=== PATIENT | male | born 1975 | race Caucasian/White ===

== ENCOUNTER → 2023-11-13 19:15 | Outpatient (REF) | payer OTHER, SELFPAY ==
[2023-11-13 19:23] VITALS: BP 165/87
[2023-11-13 19:23] LABS: Glucose - Point of Care 201 mg/dl (70-99)
[2023-11-13 19:46] LABS: % Basophils 0.5 % (0-2); % Immature Granulocytes 0.2 % (0-0.5); % Lymphocytes 24.2 % (20.5-51.1); % Monocytes 6.4 % (1.7-9.3); % Neutrophils 67.7 % (42.2-75.2); Absolute Eosinophils 0.1 10^3/uL (0-0.7); Absolute Monocytes 0.5 10^3/uL (0.1-0.6); Absolute Neutrophils 5.6 10^3/uL (1.4-6.5); Hematocrit 40.3 % (39.0-52.0); Hemoglobin 14.1 g/dL (13.0-18.0); Mean Corpuscular Hgb 31.1 pg (27.0-31.0); Mean Platelet Volume 11.3 fL (7.4-10.4); Nucleated Red Blood Cells % 0 % (-); Platelet Count 146 10^3/uL (130-400); Red Blood Cell Count 4.53 10^6/uL (4.70-6.10); White Blood Cell Count 8.3 10^3/uL (4.8-10.8)
[2023-11-13 20:00] LABS: ALT (SGPT) 82 U/L (0-50); AST (SGOT) 58 U/L (17-59); Albumin 4.6 g/dl (3.5-5.0); Alkaline Phosphatase 67 U/L (38-126); Blood Urea Nitrogen 18 mg/dl (9-20); Calcium 9.1 mg/dl (8.4-10.2); Carbon Dioxide 29 mmol/L (22-30); Chloride 98 mmol/L (98-107); Glucose 199 mg/dl (70-99); Potassium 4.2 mmol/L (3.5-5.1); Sodium 133 mmol/L (135-145); Total Bilirubin 0.6 mg/dl (0.2-1.3); Total Protein 7.5 g/dl (6.3-8.2); eGFR > 60.00
[2023-11-13 20:19] LABS: Troponin I < 0.012 ng/ml
== END | disposition left against medical advice (07) ==
LOC: REG 19:15
PROVIDERS: ATTENDING PHYSICIAN Emergency Medicine
DX: R07.9 Chest pain, unspecified (principal)
CPT/HCPCS: 80053; 82962; 84484; 85025; 93005

== ENCOUNTER 2023-12-12 15:43 | Inpatient (IN) | payer OTHER, SELFPAY ==
[2023-12-12 11:53] VITALS: BP 165/100
--- NOTE | 2023-12-12 12:27 | ED.GENMED ---
History of Present Illness
General
Chief Complaint: Dizziness
Time Seen by Provider: 12/12/23 12:06
Travel History
Have you had any contact with someone who has COVID-19?: No
Do you have any symptoms of coronavirus? Fever > 100 degrees, chills, cough, shortness of breath, sore throat, loss of taste or smell, muscle aches, or headache?: Yes
Symptoms:: fever
History of Present Illness
History of Present Illness:
47-year-old male with history of insulin-dependent diabetes, A-fib on Eliquis, hypertension, and GERD presents to the emergency department for evaluation of general malaise and severe sore throat for the past 2 days. He reports dysphagia and voice
changes over the past 24 hours. Tactile fevers and chills noted as well. Denies any coughing or chest pain.
Past History
Past History
ED Past Medical History: Asthma, GERD, HTN and NIDDM
ED Past Surgical History: Orthopedic
Social History
Tobacco: Non-smoker
Alcohol: None
Drug: None
Personal:
Living: with family
Review of Systems
Review of Systems
Allergies reviewed?: Yes
All Other Systems: ROS reviewed and negative except as documented in HPI and ROS
Phy Exam
Physical Exam
Physical Exam:
GEN: Well appearing, NAD, WDWN
HEENT: Oral mucosa moist, no scleral icterus. No tonsillar hypertrophy or exudates, uvula midline, no evidence for peritonsillar abscess. Voice is somewhat muffled, there is palpable cervical adenopathy bilaterally, noted crepitus of the neck
Cardiac: Tachycardic, regular
Lung: No respiratory distress, no tachypnea, lungs clear to auscultation
MSK: No gross deformity or injuries
Skin: Good color, no pallor or jaundice, no rashes
Neuro: AO x3, moves all extremities freely
Psych: Calm, cooperative
Course
Orders/Labs/Results
Orders:
Orders
12/12/23 11:58
Electrocardiogram (*1) Urgent
Reason for Study: Vertigo / Dizzy
12/12/23 11:59
EKG- Treatment ONCE
12/12/23 12:23
CT Neck With Iv Contrast Urgent
Comment:
Reason For Exam: dyphagia, throat pain
12/12/23 12:48
0.9% Sodium Chloride 1000 ml [Nss] 1,000 ml IV BOLUS
Ketorolac [Toradol] 15 mg IV NOW STA
12/12/23 12:52
COVID-19 Antigen Urgent
Source: Nasal Swab
Complete Blood Count/With Diff Urgent
Comprehensive Metabolic Panel Urgent
Lactic Acid Urgent
Influenza A+B Rapid Molecular Urgent
CORINA Source: Nasal Swab
Specimen Description:
12/12/23 14:29
Dexamethasone Sod Phosphate [Decadron] 10 mg IV NOW STA
12/12/23 14:30
Ampicillin/Sulbactam 3 G [Unasyn] 3 gm 0.9% Sodium Chloride 100 ml [Nss] 100 ml IV NOW
12/12/23 15:04
Code Status As Directed
Resuscitation Status: Full Code
Acetaminophen [Tylenol] 650 mg PO Q4HPRN PRN
Dextrose 50%-Water [Dextrose 50% Syringe] 12.5 grams IV [id number] PRN
Glucagon [GlucaGen] 1 mg IM PRN PRN
12/12/23 15:05
Activity As Directed
Activity Level: With Assistance
Bedside Glucose Monitoring As Directed
Frequency: AC&HS
Comment: Change to q6h if pt on TPN, tube feeding or not eating
Vital Signs As Directed
Frequency: Per unit guidelines
DX Deep Vein Thrombosis Video Routine
12/12/23 15:15
0.9% Sodium Chloride 1000 ml [Nss] 1,000 ml IV 15 mls/hr
12/12/23 15:21
Admit/Transfer Patient As Directed
Co-Sign Provider:
Level of Care: Inpatient admission
Assign to:: Medical/Surgical
Physician / Group: Jevon
Diagnosis: epiglottis/tonsillitis
Reason for Hospitalization: epiglottis/tonsillitis
Expected length of stay greater than two midnights?: Yes
ELOS- Estimated Length of Stay in days: 3
I certify the patient meets the requirements for IP care: Yes
12/12/23 15:24
Ampicillin/Sulbactam 3 G [Unasyn] 3 gm 0.9% Sodium Chloride 100 ml [Nss] 100 ml IV NOW
12/12/23 16:17
Blood Culture Routine
CORINA Source: Blood/Venous
Specimen Description:
Blood Culture Urgent
CORINA Source: Blood/Venous
Specimen Description:
12/12/23 16:30
Insulin Aspart Corrective Mod [Novolog Flexpen-Moderate Resistance] See Protocol SC AC
12/12/23 18:00
Enoxaparin Sodium [Lovenox] 40 mg SC QPM
Ketorolac [Toradol] 10 mg IV Q6HPRN PRN
12/12/23 22:00
Atorvastatin [Lipitor] 10 mg PO HS
12/12/23 23:00
Ampicillin/Sulbactam 3 G [Unasyn] 3 gm 0.9% Sodium Chloride 100 ml [Nss] 100 ml IV Q6
12/13/23 00:00
Dexamethasone Sod Phosphate [Decadron] 4 mg IV Q6
12/13/23 Breakfast
NPO
Allow oral meds: Yes
Allow clear liquids: Sips of Clears
Basic Metabolic Panel IN AM
Complete Blood Count/With Diff IN AM
Glycohemoglobin (HgbA1c) IN AM
12/13/23 08:00
Diltiazem Extended Release [Cardizem Cd] 180 mg PO DAILY
Pantoprazole [Protonix] 40 mg PO DAILY
dextroamphetamine-amphetamine 0 mg PO DAILY
12/13/23 12:00
Amphet Asp/Amphet/D-Amphet [Adderall] 10 mg PO DAILY@1200
12/14/23 06:00
Basic Metabolic Panel IN AM
Complete Blood Count/With Diff IN AM
12/15/23 06:00
Basic Metabolic Panel IN AM
Complete Blood Count/With Diff IN AM
Abnormal Lab Results
12/12/23
12:52
WBC 14.5 H 10^3/uL
(4.8-10.8)
Abs Immat Gran (auto) 0.1 H 10^3/uL
(0-0.05)
Absolute Neuts (auto) 11.8 H 10^3/uL
(1.4-6.5)
Absolute Monos (auto) 1.2 H 10^3/uL
(0.1-0.6)
Neutrophils % 81.3 H %
(42.2-75.2)
Lymphocytes % 9.6 L %
(20.5-51.1)
Sodium 132 L mmol/L
(135-145)
Glucose 198 H mg/dl
(70-99)
ALT 63 H U/L
(0-50)
12/12/23 12:52
12/12/23 12:52
Vital Signs
Initial and Last Documented VS:
Initial Vital Signs
Temp Pulse Resp BP Pulse Ox
98.6 F 106 20 165/100 95
12/12/23 11:53 12/12/23 11:53 12/12/23 11:53 12/12/23 11:53 12/12/23 11:53
Last Documented Vital Signs
Temp Pulse Resp BP Pulse Ox
98.3 F 77 18 139/83 98
12/12/23 17:00 12/12/23 17:00 12/12/23 17:00 12/12/23 17:00 12/12/23 17:00
MDM/Problems Addressed
MDM/Problems Addressed:
CT of the soft tissue neck was obtained due to the patient's muffled voice and concern for upper airway compromise. CT confirms presence of supraglottitis however no evidence for epiglottitis or parapharyngeal abscess. Given that he is an
insulin-dependent diabetic and there is clear impending airway involvement given the supraglottitis we will start the patient on IV steroids and antibiotics and admit to the medical service for further management
*Critical Care Note
Total Time (30-74mins, 75-104mins- exclusive of procedures): Not Applicable
ED Attending Note
-
Portions of this chart may have been created with voice recognition software.� Occasional wrong word or��sound alike� substitutions may have occurred due to the inherent limitations of voice recognition software.
Discharge Plan
Departure
Patient Disposition: Admit
Date of Disposition: 12/12/23
Time of Disposition: 14:33
Presentation/result/management discussed w/ accepting MD/DO: Hospitalist
Discharge Problem:
Supraglottitis without airway obstruction
Interventions
Interventions:
*Risk Screen - Suicide Last Done: 12/12/23 17:06
*General Assessment Last Done: 12/12/23 11:53
*Neglect/Abuse Screening Last Done: 12/12/23 17:06
*ED COVID-19 Vaccine History Last Done: 12/12/23 11:53
*Nursing Disposition Last Done: 12/12/23 17:06
ED- Neurological Assessment Last Done: 12/12/23 14:00
ED- Cardiac Assessment Last Done: 12/12/23 14:00
ED Swallowing Screen Last Done: 12/12/23 14:30
Discharge Date and Time
Discharge Date/Time: 12/12/23 17:07
[2023-12-12] MEDS: NSS 1000 IV ×3 (12:55→20:02)
[2023-12-12] MEDS: TORADOL 15 MG IV (12:56)
[2023-12-12 13:00] LABS: % Basophils 0.2 % (0-2); % Eosinophils 0.1 % (0-6); % Immature Granulocytes 0.5 % (0-0.5); % Lymphocytes 9.6 % (20.5-51.1); % Monocytes 8.3 % (1.7-9.3); % Neutrophils 81.3 % (42.2-75.2); Absolute Immature Granulocytes 0.1 10^3/uL (0-0.05); Absolute Lymphocytes 1.4 10^3/uL (1.2-3.4); Absolute Monocytes 1.2 10^3/uL (0.1-0.6); Absolute Neutrophils 11.8 10^3/uL (1.4-6.5); Hemoglobin 16.9 g/dL (13.0-18.0); Mean Corpuscular Hgb 30.9 pg (27.0-31.0); Mean Corpuscular Volume 85.9 fL (80.0-94.0); Mean Platelet Volume 10.4 fL (7.4-10.4); Nucleated Red Blood Cells % 0 % (-); Platelet Count 159 10^3/uL (130-400); Red Blood Cell Count 5.47 10^6/uL (4.70-6.10); Red Cell Dist. Width 12.2 % (11.5-14.5); White Blood Cell Count 14.5 10^3/uL (4.8-10.8)
[2023-12-12 13:16] LABS: ALT (SGPT) 63 U/L (0-50); AST (SGOT) 31 U/L (17-59); Albumin 4.5 g/dl (3.5-5.0); Alkaline Phosphatase 106 U/L (38-126); Blood Urea Nitrogen 20 mg/dl (9-20); Calcium 9.1 mg/dl (8.4-10.2); Carbon Dioxide 26 mmol/L (22-30); Chloride 99 mmol/L (98-107); Glucose 198 mg/dl (70-99); Lactic Acid 1.2 mmol/L (0.7-2.0); Potassium 4.3 mmol/L (3.5-5.1); Sodium 132 mmol/L (135-145); Total Bilirubin 0.9 mg/dl (0.2-1.3); Total Protein 7.7 g/dl (6.3-8.2); eGFR > 60.00
[2023-12-12 13:20] LABS: COVID-19 Antigen Negative (Negative)
--- NOTE | 2023-12-12 14:36 | HPS.HSE ---
Family Physician
-
Family Physician: NOT KNOW UNKNOWN - PT DOES
Chief Complaint
-
Generalized malaise and a dyne aphasia
History of Present Illness
47 y/o M with PMHx:
DM2
Atrial fibrillation
Essential hypertension
GERD
who p/w CC generalized malaise and a dyne aphasia. He has had symptoms for 2 days. He is developed dysphagia and changes in his voice over the last day. Patient reports that he felt he was 'drowning in mucus' which led to some difficulty
breathing. He had nausea and took [id number] antiemetics. He reports headache and neck stiffness. Patient had a fever of 102 �F. Denies chest pain, abdominal pain, diarrhea.
Medical History
Past Medical History
Past Medical History: Reports Other (As per HPI)
Past Surgical History: Reports Other (N/A)
Social History
Tobacco: Non-smoker
Alcohol: None
Drug: None
Family History
Family History: Not pertinent
Allergies / Home Medications
Allergies reflects when Allergies were last updated in [facility].
Home Medications with original date entered in [facility]
Allergy/Medication List:
Allergies
Allergy/AdvReac Type Severity Reaction Status Date / Time
No Known Allergies Allergy Verified 12/12/23 11:55
Home Medications
atorvastatin 10 mg tablet 10 mg PO HS 12/12/23
dextroamphetamine-amphetamine 10 mg tablet 10 mg PO DAILY@1200 12/12/23
dextroamphetamine-amphetamine ER 15 mg 24hr capsule,extend release 15 mg PO DAILY 12/12/23
diltiazem HCl 180 mg capsule,extended release 24 hr, controlled 180 mg PO DAILY 12/12/23
furosemide 20 mg tablet 20 mg PO DAILY 12/12/23
indomethacin 50 mg capsule 50 mg PO MEALS 12/12/23
insulin glargine 100 unit/mL (3 mL) subcutaneous pen (Lantus Solostar U-100 Insulin) 14 unit SC DAILY 12/12/23
metformin 1,000 mg tablet 1,000 mg PO BID 12/12/23
pantoprazole 40 mg tablet,delayed release 40 mg PO DAILY 12/12/23
semaglutide 0.25 mg or 0.5 mg (2 mg/3 mL) subcutaneous pen injector (Ozempic) 0.25 mg SC TU 12/12/23
Review of Systems
-
History Source: Patient
A 12 point ROS was completed and negative except as noted: Yes
Physical Exam
Vital Signs
Vital Signs
Temp Pulse Resp BP Pulse Ox
98.6 F 106 20 165/100 95
12/12/23 11:53 12/12/23 11:53 12/12/23 11:53 12/12/23 11:53 12/12/23 11:53
Physical Exam
General: Other (.)
Laboratory Results
-
12/12/23 12:52
12/12/23 12:52
Laboratory Results
Lactic Acid 1.2 mmol/L (0.7-2.0) 12/12/23 12:52
Total Bilirubin 0.9 mg/dl (0.2-1.3) 12/12/23 12:52
AST 31 U/L (17-59) 12/12/23 12:52
ALT 63 U/L (0-50) H 12/12/23 12:52
Alkaline Phosphatase 106 U/L (38-126) 12/12/23 12:52
Impression/Plan
-
Gen: NAD, AAOx3.
Eyes: EOMI, PERRLA, no scleral icterus.
Neck: supple.
CV: RRR, +S1/S2, no m/r/g.
Resp: CTAB, no rales, wheezes, or rhonchi.
Abd: +BS, soft, NT, ND
Skin: No rashes.
Neuro: CN 2-12 intact, non-focal.
Psych: Normal mood and affect.
CT neck: CT findings in keeping with tonsillitis and supraglottitis without abscess.
Acute tonsillitis and supraglottitis:
-ER Tx: Unasyn 3g, 1L NS, Toradol 15mg IV, Decadron 10mg IV
-cont Unasyn/Decadron/IVFs
-NPO for now
Other problems:
DM2: SSI/accuchecks, check a1c
Atrial fibrillation: Cont Cardizem
Essential hypertension: Cont Cardizem
GERD: Cont PPI
Hyponatremia
FULL/Lovenox
[2023-12-12] MEDS: DECADRON 10 MG IV (15:26)
[2023-12-12] MEDS: UNASYN IV ×2 (15:34→22:00)
[2023-12-12 16:00] VITALS: BP 138/81
[2023-12-12] MEDS: TYLENOL 650 MG PO (16:11)
[2023-12-12 17:00] VITALS: BP 139/83; BMI 36.3
[2023-12-12 17:46] LABS: Glucose - Point of Care 227 mg/dl (70-99)
[2023-12-12] MEDS: NOVOLOG FLEXPEN-MODERATE RESISTANCE 3 UNITS SC (18:36)
[2023-12-12] MEDS: LOVENOX 40 MG SC (18:36)
[2023-12-12] MEDS: TORADOL 10 MG IV (20:02)
[2023-12-12] MEDS: LIPITOR 10 MG PO (21:56)
[2023-12-12 23:15] VITALS: BP 122/79
[2023-12-12] MEDS: DECADRON 4 MG IV (23:50)
[2023-12-12 23:55] LABS: Glucose - Point of Care 220 mg/dl (70-99)
[2023-12-13] MEDS: NSS 1000 IV ×3 (04:04→21:52)
[2023-12-13] MEDS: TORADOL 10 MG IV ×3 (04:13→16:58)
[2023-12-13] MEDS: UNASYN IV ×4 (05:56→23:32)
[2023-12-13] MEDS: DECADRON 4 MG IV ×4 (05:56→23:32)
[2023-12-13 05:58] LABS: Glucose - Point of Care 277 mg/dl (70-99)
[2023-12-13] MEDS: NOVOLOG FLEXPEN-MODERATE RESISTANCE 5 UNITS SC (06:01)
[2023-12-13 07:30] VITALS: BP 127/78
[2023-12-13 08:14] LABS: % Basophils 0.2 % (0-2); % Immature Granulocytes 0.9 % (0-0.5); % Monocytes 3.7 % (1.7-9.3); % Neutrophils 84.2 % (42.2-75.2); Absolute Immature Granulocytes 0.1 10^3/uL (0-0.05); Absolute Lymphocytes 1.1 10^3/uL (1.2-3.4); Absolute Monocytes 0.4 10^3/uL (0.1-0.6); Absolute Neutrophils 8.4 10^3/uL (1.4-6.5); Hematocrit 44.4 % (39.0-52.0); Hemoglobin 15.6 g/dL (13.0-18.0); Mean Corp Hgb Conc. 35.1 g/dL (33.0-37.0); Mean Corpuscular Hgb 30.9 pg (27.0-31.0); Mean Corpuscular Volume 87.9 fL (80.0-94.0); Mean Platelet Volume 11.2 fL (7.4-10.4); Nucleated Red Blood Cells % 0 % (-); Platelet Count 152 10^3/uL (130-400); Red Blood Cell Count 5.05 10^6/uL (4.70-6.10); Red Cell Dist. Width 12.2 % (11.5-14.5); White Blood Cell Count 9.9 10^3/uL (4.8-10.8)
[2023-12-13 08:47] LABS: Blood Urea Nitrogen 30 mg/dl (9-20); Calcium 8.8 mg/dl (8.4-10.2); Carbon Dioxide 24 mmol/L (22-30); Chloride 101 mmol/L (98-107); Estimated Creatinine Clearance > 125 ml/min; Glucose 274 mg/dl (70-99); Potassium 4.3 mmol/L (3.5-5.1); Sodium 136 mmol/L (135-145); eGFR > 60.00
[2023-12-13 09:30] LABS: Glucose - Point of Care 236 mg/dl (70-99)
[2023-12-13] MEDS: CARDIZEM CD 180 MG PO (09:46)
[2023-12-13] MEDS: PROTONIX 40 MG PO (09:46)
[2023-12-13] MEDS: LANTUS 0.100000000000000006 UNITS SC (09:46)
--- NOTE | 2023-12-13 10:18 | W.PN.HOSP.TC ---
Today's Communication/Plan
-
see bold
Assessment / Plan
Assessment / Plan
Gen: NAD, AAOx3.
Eyes: EOMI, PERRLA, no scleral icterus.
Neck: supple.
CV: RRR, +S1/S2, no m/r/g.
Resp: CTAB, no rales, wheezes, or rhonchi.
Abd: +BS, soft, NT, ND
Skin: No rashes.
Neuro: CN 2-12 intact, non-focal.
Psych: Normal mood and affect.
CT neck: CT findings in keeping with tonsillitis and supraglottitis without abscess.
Acute tonsillitis and supraglottitis:
-ER Tx: Unasyn 3g, 1L NS, Toradol 15mg IV, Decadron 10mg IV
-cont Unasyn/Decadron/IVFs
-VSE as per speech
Other problems:
DM2: a1c 9.0%, SSI/accuchecks, NPH 10U x 1, diabetes VARIETY SAW OPERATOR to see, cont Lantus
Atrial fibrillation: Cont Cardizem
Essential hypertension: Cont Cardizem
GERD: Cont PPI
Hyponatremia, resolved
FULL/Lovenox
Anticipated Discharge: 24 - 48 hours
Subjective/Interval History
-
Date of Service: December 13, 2023
No new complaints. Denies CP/SOB/drooling.
Objective Data
-
Labs:
Laboratory Results
12/13/23
06:57
WBC 9.9
Hgb 15.6
Hct 44.4
Plt Count 152
Sodium 136
Potassium 4.3
Chloride 101
Carbon Dioxide 24
BUN 30 H
Creatinine 0.8
Glucose 274 H
Calcium 8.8
Vital Signs:
Vital Signs
Temp Pulse Resp BP Pulse Ox
97.7 F 65 16 127/78 96
12/13/23 07:30 12/13/23 09:46 12/13/23 07:30 12/13/23 09:46 12/13/23 07:30
I&O
12/12/23 12/13/23 12/14/23
06:59 06:59 06:59
Intake Total 1615 / 1615
Balance 1615 / 1615
--- NOTE | 2023-12-13 11:14 | PTOTSP ---
SPEECH THERAPY SWALLOW EVALUATION:
Clinical signs of pharyngeal dysphagia, with oral swallow function grossly WFL, likely acute related to supraglottitis. Patient exhibiting signs of aspiration at bedside with all textures. Recommend instrumental assessment of swallowing
(Videofluoroscopic Swallowing Study) to further assess swallow physiology. Recommend patient to be strict NPO until VSE with temporary alternate means for all nutrition/medication/hydration. Speech therapy to follow and provide further
recommendations following VSE results.
RECOMMEND:
1) Videofluoroscopic Swallowing Study
2) strict NPO until VSE with temporary alternate means for all nutrition/medication/hydration
3) Speech therapy to follow and provide further recommendations following VSE results
--- NOTE | 2023-12-13 11:25 | CM ---
Patient seen bedside, initial assessment completed. Patient reports he resides with his and nine children in a multiple story home. Patient denies DME, VN, or SNF. Patient confirms pharmacy used [facility], patient unsure of PCP name,
possibly [facility]. CM will continue to follow for discharge planning needs.
Plan; home no needs anticipated, pending further medical assessment.
--- NOTE | 2023-12-13 11:35 | PN.DE.MGMTRT ---
Insulin Management
- -
12/13/2023: Diabetes Management Consult
47 year old male with PMH of T2DM, admitted with Acute tonsillitis and supraglottitis: A1C 9.0%, Cr 0.9, eGFR>60.
Pt reports that he had been taking Trulicity--> switched to Ozempic ( hasn't started taking it), Lantus 14 units @ HS and Metformin 1000 mg BID-->Self reduced to 1000mg daily. States he has not taken any of his diabetes medications in 6 months due
to loss of insurance, reports that he recently got insurance coverage. HE reports that his A1C was much higher than it is now at initial DX of DM but does not recall what it was.
He currently has a CGM (Mckay) in place which was provided by his PCP as a sample.
He has been NPO, glucose elevated 220-277 requiring 3-5 units of corrective while NPO. His FBG was 274 this AM, received Lantus 10 units and NPH 10 units this AM as ordered by Dr. Escoto.
Will Resume his OP regimen, Lantus 14 units @ HS and Metformin 1000mg BID. Will reassess in AM and consider an additional oral agent if needed
He is ordered a Reg diet, will change to 2000 ADA. Instructed pt to resume his Ozempic upon discharge
Diabetes History
- -
Type of Diabetes: 2 requiring insulin
Pre-Admission Diabetes Regimen
12/12/23 12/13/23
12:52 06:57
Creatinine 0.9 0.8
Lab Results
Hemoglobin A1c 9.0 % (4.0-5.6) H 12/13/23 06:57
Insulin Pump Settings
IP Diabetes Regimen
12/12/23 12/12/23 12/12/23
12:52 17:45 23:54
Glucose 198 H
POC Glucose 227 H 220 H
12/13/23 12/13/23 12/13/23
05:57 06:57 09:29
Glucose 274 H
POC Glucose 277 H 236 H
Meal type: Breakfast
Meal type: Dinner
Amount consumed: 0
Patient Education
[2023-12-13 11:51] LABS: Glucose - Point of Care 225 mg/dl (70-99)
[2023-12-13] MEDS: HUMULIN N KWIKPEN 10 UNITS SC (11:52)
--- NOTE | 2023-12-13 12:30 | PTOTSP ---
Speech Language Pathology
VIDEOFLUOROSCOPIC SWALLOWING EXAMINATION (VSE) completed. Oral phase of swallow WNL. Mild pharyngeal dysphagia noted. Suspect related to acute tonsillitis and supraglottitis with edema, which should resolve. Trace to moderate pharyngeal residue
noted, most noteable in vallecula and on posterior pharyngeal wall. Throat clearing consistently noted, suspect secondary to this residue. Transient supraglottic penetration (PAS 2) noted with thin liquids via cup/consecutive straw sip and when
utilized as a liquid wash post regular solids. Liquid wash was effective at partially clearing vallecular residue.
Recommend:
(1) Initiate regular solids/thin liquids
(2) Aspiration precautions: sit upright, small bites, slow rate, single sips, alternate solids and liquids
(3) Meds whole with liquid
(4) BURNISHER AND BUMPER to continue to follow
[2023-12-13] MEDS: NOVOLOG FLEXPEN-MODERATE RESISTANCE 3 UNITS SC (12:45)
[2023-12-13 15:30] VITALS: BP 143/80
[2023-12-13] MEDS: GLUCOPHAGE 1000 MG PO (17:01)
[2023-12-13] MEDS: LOVENOX 40 MG SC (17:02)
[2023-12-13 17:11] LABS: Glucose - Point of Care 293 mg/dl (70-99)
[2023-12-13] MEDS: NOVOLOG FLEXPEN 10 UNITS SC (18:15)
[2023-12-13] MEDS: LANTUS 0.140000000000000013 UNITS SC (21:20)
[2023-12-13] MEDS: LIPITOR 10 MG PO (21:21)
[2023-12-13] MEDS: NOVOLOG FLEXPEN-MODERATE RESISTANCE 7 UNITS SC (21:25)
[2023-12-13 21:32] LABS: Glucose - Point of Care 335 mg/dl (70-99)
[2023-12-13] MEDS: MELATONIN 5 MG PO (21:52)
[2023-12-13 23:08] VITALS: BP 128/79
[2023-12-14] MEDS: NSS 1000 IV ×2 (05:56→13:08)
[2023-12-14] MEDS: DECADRON 4 MG IV ×2 (05:56→13:09)
[2023-12-14] MEDS: UNASYN IV ×2 (05:56→13:08)
[2023-12-14 07:30] VITALS: BP 133/70
[2023-12-14 07:30] LABS: Glucose - Point of Care 211 mg/dl (70-99)
[2023-12-14] MEDS: GLUCOPHAGE 1000 MG PO (08:07)
[2023-12-14] MEDS: PROTONIX 40 MG PO (08:07)
[2023-12-14] MEDS: NOVOLOG FLEXPEN 8 UNITS SC (08:07)
[2023-12-14] MEDS: NOVOLOG FLEXPEN-MODERATE RESISTANCE 3 UNITS SC (08:07)
--- NOTE | 2023-12-14 08:54 | PN.DE.MGMTRT ---
Insulin Management
- -
12/13/2023: Diabetes Management Consult
47 year old male with PMH of T2DM, admitted with Acute tonsillitis and supraglottitis: A1C 9.0%, Cr 0.9, eGFR>60.
Pt reports that he had been taking Trulicity--> switched to Ozempic ( hasn't started taking it), Lantus 14 units @ HS and Metformin 1000 mg BID-->Self reduced to 1000mg daily. States he has not taken any of his diabetes medications in 6 months due
to loss of insurance, reports that he recently got insurance coverage. HE reports that his A1C was much higher than it is now at initial DX of DM but does not recall what it was.
He currently has a CGM (Mckay) in place which was provided by his PCP as a sample.
He has been NPO, glucose elevated 220-277 requiring 3-5 units of corrective while NPO. His FBG was 274 this AM, received Lantus 10 units and NPH 10 units this AM as ordered by Dr. Escoto.
Will Resume his OP regimen, Lantus 14 units @ HS and Metformin 1000mg BID. Will reassess in AM and consider an additional oral agent if needed
He is ordered a Reg diet, will change to 2000 ADA. Instructed pt to resume his Ozempic upon discharge
12/14/2023 Diabetes management Follow up
A1C 9%. Patient home dose of lantus 14 units given last HS. Fasting glucose 211. Will increase HS lantus to 18 units. AC novolog 8 units ordered. Pre meal glucose 293, hs 335. Will increase AC novolog to 10 units. Will continue metformin 1000
BID. Regular diet ordered, will change to 2000 calorie.
Diabetes History
- -
Type of Diabetes: 2 requiring insulin
Pre-Admission Diabetes Regimen
Lab Results
Hemoglobin A1c 9.0 % (4.0-5.6) H 12/13/23 06:57
Insulin Pump Settings
IP Diabetes Regimen
12/13/23 12/13/23 12/13/23
09:29 11:50 17:10
POC Glucose 236 H 225 H 293 H
12/13/23 12/14/23
21:24 07:29
POC Glucose 335 H 211 H
Meal type: Breakfast
Patient Education
[2023-12-14] MEDS: CARDIZEM CD 180 MG PO (09:18)
[2023-12-14 09:28] LABS: % Basophils 0.1 % (0-2); % Immature Granulocytes 0.7 % (0-0.5); % Lymphocytes 10.8 % (20.5-51.1); % Monocytes 3.7 % (1.7-9.3); % Neutrophils 84.7 % (42.2-75.2); Absolute Immature Granulocytes 0.1 10^3/uL (0-0.05); Absolute Lymphocytes 1.3 10^3/uL (1.2-3.4); Absolute Monocytes 0.5 10^3/uL (0.1-0.6); Absolute Neutrophils 10.2 10^3/uL (1.4-6.5); Hematocrit 42.4 % (39.0-52.0); Hemoglobin 14.5 g/dL (13.0-18.0); Mean Corp Hgb Conc. 34.2 g/dL (33.0-37.0); Mean Corpuscular Hgb 30.3 pg (27.0-31.0); Mean Corpuscular Volume 88.5 fL (80.0-94.0); Mean Platelet Volume 11.2 fL (7.4-10.4); Nucleated Red Blood Cells % 0 % (-); Platelet Count 174 10^3/uL (130-400); Red Blood Cell Count 4.79 10^6/uL (4.70-6.10); Red Cell Dist. Width 12.1 % (11.5-14.5)
[2023-12-14 10:00] LABS: Blood Urea Nitrogen 26 mg/dl (9-20); Calcium 8.7 mg/dl (8.4-10.2); Carbon Dioxide 27 mmol/L (22-30); Chloride 104 mmol/L (98-107); Estimated Creatinine Clearance > 125 ml/min; Glucose 247 mg/dl (70-99); Potassium 4.7 mmol/L (3.5-5.1); Sodium 137 mmol/L (135-145); eGFR > 60.00
--- NOTE | 2023-12-14 11:27 | CM ---
Patient seen bedside, inquiring about discharge. CM spoke with patients nurse, patient still receiving IV antibiotics. CM will continue to follow for discharge planning needs.
Plan; home no needs anticipated, will follow for medical needs.
--- NOTE | 2023-12-14 11:29 | W.PN.HOSP.TC ---
Today's Communication/Plan
-
d/c
Assessment / Plan
Assessment / Plan
Gen: NAD, AAOx3.
Eyes: EOMI, PERRLA, no scleral icterus.
Neck: supple.
CV: Remains RRR, +S1/S2, no m/r/g.
Resp: Remains CTAB, no rales, wheezes, or rhonchi.
Abd: Remains +BS, soft, NT, ND
Skin: No rashes.
Neuro: CN 2-12 intact, non-focal.
Psych: Normal mood and affect.
CT neck: CT findings in keeping with tonsillitis and supraglottitis without abscess.
Acute tonsillitis and supraglottitis:
-ER Tx: Unasyn 3g, 1L NS, Toradol 15mg IV, Decadron 10mg IV
-has been on Unasyn/Decadron/IVFs, transition to Augmentin and prednisone taper on d/c
-s/p VSE, reg/thins
Other problems:
DM2: a1c 9.0%, SSI/accuchecks, Lantus and premeal Novolog increased, diabetic diet
Atrial fibrillation: Cont Cardizem
Essential hypertension: Cont Cardizem
GERD: Cont PPI
Hyponatremia, resolved
FULL/Lovenox
Total time spent on d/c = 34 min. This included today's physical exam, progress note, review of laboratory and diagnostic data, preparation of discharge documents and prescriptions, and discussions about the pt's hospital course and discharge plan
with the patient and other electromedical equipment technician involved in the patient's care.
Anticipated Discharge: Today
Subjective/Interval History
-
Date of Service: December 14, 2023
Pt reports he feels better. Denies drooling, chest pain, shortness of breath.
Objective Data
-
Labs:
Laboratory Results
12/14/23
08:20
WBC 12.0 H
Hgb 14.5
Hct 42.4
Plt Count 174
Sodium 137
Potassium 4.7
Chloride 104
Carbon Dioxide 27
BUN 26 H
Creatinine 0.8
Glucose 247 H
Calcium 8.7
Vital Signs:
Vital Signs
Temp Pulse Resp BP Pulse Ox
97.9 F 71 18 133/70 98
12/14/23 07:30 12/14/23 09:18 12/14/23 07:30 12/14/23 09:18 12/14/23 07:30
I&O
12/13/23 12/14/23 12/15/23
06:59 06:59 06:59
Intake Total 1615 / 1615 2435 / 2435
Balance 1615 / 1615 2435 / 2435
--- NOTE | 2023-12-14 12:16 | W.PN.HOSP.TC ---
Today's Communication/Plan
-
see bold
Assessment / Plan
Assessment / Plan
Gen: NAD, AAOx3.
Eyes: EOMI, PERRLA, no scleral icterus.
Neck: supple.
CV: Remains RRR, +S1/S2, no m/r/g.
Resp: Remains CTAB, no rales, wheezes, or rhonchi.
Abd: Remains +BS, soft, NT, ND
Skin: No rashes.
Neuro: CN 2-12 intact, non-focal.
Psych: Normal mood and affect.
CT neck: CT findings in keeping with tonsillitis and supraglottitis without abscess.
Acute tonsillitis and supraglottitis:
-ER Tx: Unasyn 3g, 1L NS, Toradol 15mg IV, Decadron 10mg IV
-has been on Unasyn/Decadron/IVFs, transition to Augmentin and prednisone taper on d/c
-s/p VSE, reg/thins
Other problems:
DM2: a1c 9.0%, SSI/accuchecks, Lantus and premeal Novolog increased, diabetic diet
Atrial fibrillation: Cont Cardizem
Essential hypertension: Cont Cardizem
GERD: Cont PPI
Hyponatremia, resolved
FULL/Lovenox
Total time spent on d/c = 34 min. This included today's physical exam, progress note, review of laboratory and diagnostic data, preparation of discharge documents and prescriptions, and discussions about the pt's hospital course and discharge plan
with the patient and other medical donation professional involved in the patient's care.
Anticipated Discharge: Today
Subjective/Interval History
-
Date of Service: December 14, 2023
Pt states he feels better. Denies drooling, CP, SOB.
Objective Data
-
Labs:
Laboratory Results
12/14/23
08:20
WBC 12.0 H
Hgb 14.5
Hct 42.4
Plt Count 174
Sodium 137
Potassium 4.7
Chloride 104
Carbon Dioxide 27
BUN 26 H
Creatinine 0.8
Glucose 247 H
Calcium 8.7
Vital Signs:
Vital Signs
Temp Pulse Resp BP Pulse Ox
97.9 F 71 18 133/70 98
12/14/23 07:30 12/14/23 09:18 12/14/23 07:30 12/14/23 09:18 12/14/23 07:30
I&O
12/13/23 12/14/23 12/15/23
06:59 06:59 06:59
Intake Total 1615 / 1615 2435 / 2435
Balance 1615 / 1615 2435 / 2435
[2023-12-14 12:21] LABS: Glucose - Point of Care 257 mg/dl (70-99)
[2023-12-14] MEDS: NOVOLOG FLEXPEN 10 UNITS SC (13:12)
[2023-12-14] MEDS: NOVOLOG FLEXPEN-MODERATE RESISTANCE 5 UNITS SC (13:13)
--- NOTE | 2023-12-14 13:17 | W.DCSUMMARY ---
Discharge Summary
Discharge Data
Date of Admission: 12/12/23
Date of Discharge: 12/14/23
-
Pending Results: No
Hospital Course
Primary diagnoses:
Acute tonsillitis and supraglottitis
Type 2 diabetes mellitus, poorly controlled
Secondary diagnoses:
Paroxysmal atrial fibrillation
Essential hypertension
Gastroesophageal reflux disease
Hyponatremia
Consultants:
None
Imaging:
CT neck: CT findings in keeping with tonsillitis and supraglottitis without abscess.
47-year-old male who presented with generalized malaise and a odynophagia as outlined in the H&P done on admission. Hospital course per problem list:
Acute tonsillitis and supraglottitis: In the ER the patient received Unasyn 3g, 1L NS, Toradol 15mg IV, Decadron 10mg IV. He was placed on IV Unasyn, IV Decadron, and IV fluids with significant clinical improvement. He was seen by speech therapy
and had a video swallow study. Regular solids and thin liquids were recommended. He was transitioned to Augmentin and a prednisone taper on discharge.
Type 2 diabetes mellitus, poorly controlled: Patient's hemoglobin A1c was 9.0%. His Lantus and Premeal NovoLog were increased by the diabetes nurse practitioner while hospitalized. He was placed on metformin. His Ozempic will continue on
discharge.
Discharge Plan
-
Patient Disposition: Home (Routine Discharge)
Discharge Diagnosis/Procedures: Acute tonsillitis and supraglottitis
Condition: Good
Diet: Diabetic, Carb Controlled
Activity: As tolerated
Driving Restrictions: As prior to admission
Bathing Restrictions: None
Referrals:
UNKNOWN - PT DOES,NOT KNOW [Family Provider] - in less than 1 week
Prescriptions:
New
metformin 1,000 mg Tablet
1,000 mg PO BID@0800,1700 Qty: 60 0RF
insulin aspart U-100 [Novolog FlexPen U-100 Insulin] 100 unit/mL (3 mL) Insulin Pen
10 unit SC AC Qty: 15 0RF
amoxicillin-pot clavulanate 875-125 mg tablet
1 tab PO BID Qty: 16 0RF
prednisone 10 mg tablet
10 mg PO DAILY Qty: 20 0RF
Rx Instructions:
Taper: 40mg daily x 2 days, 30mg daily x 2 days, 20mg daily x 2 days, 10mg daily x 2 days
Continued
atorvastatin 10 mg tablet
10 mg PO HS
dextroamphetamine-amphetamine 10 mg tablet
10 mg PO DAILY@1200
Patient Comments:
12/12/2023: last filled 10/28/23, 30 tabs for 30 days from [facility]#[id number]
pantoprazole 40 mg tablet,delayed release (DR/EC)
40 mg PO DAILY
metformin 1,000 mg tablet
1,000 mg PO BID
furosemide 20 mg tablet
20 mg PO DAILY
diltiazem HCl 180 mg capsule,ext.rel 24h degradable
180 mg PO DAILY
dextroamphetamine-amphetamine 15 mg capsule,extended release 24hr
15 mg PO DAILY
Patient Comments:
12/12/2023: last filled 10/28/23, 30 tabs for 30 days from [id number]
Ozempic 0.25 mg or 0.5 mg (2 mg/3 mL) pen injector
0.25 mg SC TU
Changed
insulin glargine [Lantus Solostar U-100 Insulin] 100 unit/mL (3 mL) insulin pen
18 unit SC DAILY Qty: 0 0RF
Discontinued
indomethacin 50 mg capsule
50 mg PO MEALS
Discharge Orders:
Discharge Patient (As Directed); Ordered 12/14/23
Ordered By: Xander Escoto
[2023-12-14] MEDS: TORADOL 10 MG IV (13:59)
== END 2023-12-14 15:34 | disposition home or self-care (01) | DRG 153 ==
LOC: 4 WEST ACU 15:43
PROVIDERS: Physician Assistant; ADMITTING PHYSICIAN Internal Medicine; EMERGENCY PHYSICIAN Emergency Medicine
DX: J04.30 Supraglottitis, unspecified, without obstruction (principal); E87.1 Hypo-osmolality and hyponatremia; J10.1 Influenza due to other identified influenza virus with other respiratory manifestations; I10 Essential (primary) hypertension; K21.9 Gastro-esophageal reflux disease without esophagitis; E11.65 Type 2 diabetes mellitus with hyperglycemia; I48.0 Paroxysmal atrial fibrillation; Z11.52 Encounter for screening for COVID-19; Z79.01 Long term (current) use of anticoagulants
CPT/HCPCS: 70491; 74230; 80048; 80053; 82962; 83036; 83605; 85025; 87040; 87502; 87811; 92610; 92611; 93005; 96361; 96374; 99285; Q9967

== ENCOUNTER 2024-01-31 15:45 | Emergency (ER) | payer OTHER, SELFPAY ==
[2024-01-31 15:51] VITALS: BP 135/77
[2024-01-31 16:49] LABS: % Basophils 0.2 % (0-2); % Eosinophils 0.2 % (0-6); % Immature Granulocytes 0.5 % (0-0.5); % Lymphocytes 22.1 % (20.5-51.1); % Monocytes 8.5 % (1.7-9.3); % Neutrophils 68.5 % (42.2-75.2); Absolute Lymphocytes 1.3 10^3/uL (1.2-3.4); Absolute Monocytes 0.5 10^3/uL (0.1-0.6); Absolute Neutrophils 4.1 10^3/uL (1.4-6.5); Hematocrit 44.3 % (39.0-52.0); Hemoglobin 14.8 g/dL (13.0-18.0); Mean Corp Hgb Conc. 33.4 g/dL (33.0-37.0); Mean Corpuscular Hgb 29.8 pg (27.0-31.0); Mean Corpuscular Volume 89.3 fL (80.0-94.0); Mean Platelet Volume 11.4 fL (7.4-10.4); Nucleated Red Blood Cells % 0 % (-); Platelet Count 153 10^3/uL (130-400); Red Blood Cell Count 4.96 10^6/uL (4.70-6.10); Red Cell Dist. Width 12.8 % (11.5-14.5)
[2024-01-31 17:06] LABS: ALT (SGPT) 103 U/L (0-50); AST (SGOT) 50 U/L (17-59); Albumin 4.4 g/dl (3.5-5.0); Alkaline Phosphatase 77 U/L (38-126); Blood Urea Nitrogen 20 mg/dl (9-20); Calcium 9.3 mg/dl (8.4-10.2); Carbon Dioxide 27 mmol/L (22-30); Chloride 101 mmol/L (98-107); Glucose 334 mg/dl (70-99); Potassium 4.8 mmol/L (3.5-5.1); Sodium 138 mmol/L (135-145); Total Bilirubin 0.4 mg/dl (0.2-1.3); Total Protein 7.1 g/dl (6.3-8.2); eGFR > 60.00
[2024-01-31 17:16] LABS: Troponin I < 0.012 ng/ml
[2024-01-31 17:29] VITALS: BP 137/72
[2024-01-31 17:51] VITALS: BP 137/72; BMI 27.2
[2024-01-31 18:00] VITALS: BP 136/69
[2024-01-31] MEDS: DECADRON 10 MG IV (19:22)
[2024-01-31] MEDS: DUONEB 3 ML INH ×2 (19:22→22:52)
[2024-01-31] MEDS: NSS 1000 IV (19:22)
[2024-01-31] MEDS: NOVOLOG vial 0.100000000000000006 UNITS SC (20:07)
[2024-01-31 20:08] LABS: Glucose - Point of Care 194 mg/dl (70-99)
--- NOTE | 2024-01-31 22:43 | ED.GENMED ---
History of Present Illness
General
Chief Complaint: Chest Pain
Source: patient, spouse and family
Exam Limitations: none
Time Seen by Provider: 01/31/24 17:44
Nursing documentation reviewed up to this point in time: agreed with
Travel History
Have you had any contact with someone who has COVID-19?: No
Do you have any symptoms of coronavirus? Fever > 100 degrees, chills, cough, shortness of breath, sore throat, loss of taste or smell, muscle aches, or headache?: No
History of Present Illness
History of Present Illness:
48-year-old male with Curtis history of paroxysmal A-fib currently on diltiazem but not anticoagulated, hypertension, IDDM, bipolar disorder presenting to the emergency department today with concerns of chest tightness shortness of breath and also
some shakiness over the past few days. Has had some wheezing over the past few weeks as well. Has been previously on steroids. Denies nausea vomiting claims that he is been working every day and is able to get through her workday without feeling
severe shortness of breath. Denies fevers.
Past History
Past History
ED Past Medical History: Asthma, GERD, HTN and NIDDM
ED Past Surgical History: Orthopedic
Social History
Tobacco: Non-smoker
Alcohol: None
Drug: None
Personal:
Living: with family
Review of Systems
Review of Systems
Allergies reviewed?: Yes
All Other Systems: ROS reviewed and negative except as documented in HPI and ROS
Phy Exam
Physical Exam
Physical Exam:
GENERAL: Alert , in no apparent distress
EYE: pupils equal and reactive
NECK: Supple, no significant adenopathy.
ENT: o/p clr, mmm.
CARDIAC: Irregularly irregular
LUNGS: Diffuse expiratory wheezing otherwise good air movement speaking full sentences
ABDOMEN: Soft, without focal tenderness, no r/g, no cvat
NEUROLOGICAL: Alert and oriented, no focal neuro deficits
SKIN: Warm and dry, skin intact.
MUSCULOSKELETAL: No edema, well perfused.
PSYCH: Normal and appropriate interaction.
Scores
Heart Score for Chest Pain Patients
STEMI patient?: No
History: Slightly or Non-Suspicious
ECG: Normal
Age: >45 - <65 years
Risk Factors: >/= 3 Risk Factors or History of CAD
Troponin: </= Normal Limit
Heart Score for Chest Pain Patients: 3
Heart Score Risk: 2.5% MACE over next 6 weeks
Course
Orders/Labs/Results
Orders:
Orders
01/31/24 15:46
Electrocardiogram (*1) Urgent
Reason for Study: Chest Pain
01/31/24 15:47
EKG- Treatment ONCE
01/31/24 16:38
Complete Blood Count/With Diff Urgent
01/31/24 16:39
Comprehensive Metabolic Panel Urgent
Troponin I Urgent
01/31/24 17:51
Chest [CR Chest - 2 Views ] Urgent
Comment:
Reason For Exam: cp
01/31/24 19:00
Cardiac Monitoring- Treatment ONCE
0.9% Sodium Chloride 1000 ml [Nss] 1,000 ml IV BOLUS
Dexamethasone Sod Phosphate [Decadron] 10 mg IV NOW STA
Ipratropium/Albuterol Sulfate [Duoneb] 3 ml INH R NOW ONE
01/31/24 19:39
Insulin Aspart [NOVOLOG vial] 10 units Subcutaneous Insulin Syringe [Syringe-Insulin] 0 unit SC NOW
01/31/24 22:43
Apixaban [Eliquis] 5 mg PO ONCE ONE
01/31/24 22:50
Ipratropium/Albuterol Sulfate [Duoneb] 3 ml INH R NOW ONE
Abnormal Lab Results
01/31/24 01/31/24 01/31/24
16:38 16:39 20:06
MPV 11.4 H fL
(7.4-10.4)
Glucose 334 H mg/dl
(70-99)
ALT 103 H U/L
(0-50)
POC Glucose 194 H mg/dl
(70-99)
01/31/24 16:38
01/31/24 16:39
Vital Signs
Initial and Last Documented VS:
Initial Vital Signs
Temp Pulse Resp BP Pulse Ox
98.7 F 66 18 135/77 98
01/31/24 15:51 01/31/24 15:51 01/31/24 15:51 01/31/24 15:51 01/31/24 15:51
Last Documented Vital Signs
Temp Pulse Resp BP Pulse Ox
98.1 F 81 18 141/79 99
01/31/24 22:56 01/31/24 22:56 01/31/24 22:56 01/31/24 22:56 01/31/24 22:56
MDM/Problems Addressed
MDM/Problems Addressed:
48-year-old male presenting to the emergency department today with concerns of chest tightness and palpitations. On arrival here he was found to be in atrial fibrillation which she has been in the past currently rate controlled with diltiazem.
Rate in the 70s here. Does have expiratory wheezing diffusely does have a history of asthma x-ray performed signs of pneumonia. Labs unremarkable pulse ox staying from the mid to high 90s initial sugar level of 334 but improving to the 100s after
receiving his insulin. He was given a nebulizer treatment as well as steroid claimed that he feels much better and would like to go home. Atrial fibrillation still in normal rate Case was discussed with cardiology recommended starting Eliquis as
his Abram Vascor is 2. He will follow-up closely as an outpatient otherwise given strict return precautions. Advised to strictly control blood sugar.
*Critical Care Note
Total Time (30-74mins, 75-104mins- exclusive of procedures): Not Applicable
ED Attending Note
-
Portions of this chart may have been created with voice recognition software.� Occasional wrong word or��sound alike� substitutions may have occurred due to the inherent limitations of voice recognition software.
Discharge Plan
Departure
Patient Disposition: Home (Routine Discharge)
Date of Disposition: 01/31/24
Time of Disposition: 22:44
Patient with high blood pressure during this ER visit?: No
Condition: Good
Covid-19: Not Applicable
Discharge Problem:
Asthma exacerbation, Atrial fibrillation, Hyperglycemia
Instructions: Asthma, Adult (DC), Atrial Fibrillation (DC)
Prescriptions:
New
Eliquis 5 mg tablet
5 mg PO BID 14 Days Qty: 28 0RF
prednisone 50 mg tablet
50 mg PO DAILY 4 Days Qty: 4 0RF
albuterol sulfate 2.5 mg /3 mL (0.083 %) solution for nebulization
2.5 mg inhalation Q4H PRN (Reason: shortness of breath or wheezing) Qty: 90 0RF
No Action
atorvastatin 10 mg tablet
10 mg PO HS
dextroamphetamine-amphetamine 10 mg tablet
10 mg PO DAILY@1200
Patient Comments:
12/12/2023: last filled 10/28/23, 30 tabs for 30 days from [facility]#[id number]
pantoprazole 40 mg tablet,delayed release (DR/EC)
40 mg PO DAILY
metformin 1,000 mg tablet
1,000 mg PO BID
furosemide 20 mg tablet
20 mg PO DAILY
diltiazem HCl 180 mg capsule,ext.rel 24h degradable
180 mg PO DAILY
dextroamphetamine-amphetamine 15 mg capsule,extended release 24hr
15 mg PO DAILY
Patient Comments:
12/12/2023: last filled 10/28/23, 30 tabs for 30 days from [facility]#[id number]
Ozempic 0.25 mg or 0.5 mg (2 mg/3 mL) pen injector
0.25 mg SC TU
metformin 1,000 mg Tablet
1,000 mg PO BID@0800,1700 Qty: 60 0RF
insulin aspart U-100 [Novolog FlexPen U-100 Insulin] 100 unit/mL (3 mL) Insulin Pen
10 unit SC AC Qty: 15 0RF
amoxicillin-pot clavulanate 875-125 mg tablet
1 tab PO BID Qty: 16 0RF
insulin glargine [Lantus Solostar U-100 Insulin] 100 unit/mL (3 mL) insulin pen
18 unit SC DAILY Qty: 0 0RF
Referrals:
Justice Henriquez DO [Active] - Follow up in 5-7 days
Jesusita Fields, [Family Provider] -
Activity Restrictions/Additional Instructions:
You came to the emergency department today with concerns exacerbation also you are in A-fib. This was discussed with your licensed customs broker. Please take Eliquis twice daily until follow-up. Additionally please take prednisone 50 mg once daily for the
next 4 days for your asthma exacerbation and use the nebulizer treatment as well. Return to the emergency department for any worsening, new or concerning symptoms.
Interventions
Interventions:
*Risk Screen - Suicide Last Done: 01/31/24 15:53
*General Assessment Last Done: 01/31/24 15:53
*Neglect/Abuse Screening Last Done: 01/31/24 15:53
ED- Fall Risk Assessment Last Done: 01/31/24 17:51
*ED COVID-19 Vaccine History Last Done: 01/31/24 17:51
*Nursing Disposition Last Done: 01/31/24 22:57
ED- Cardiac Assessment Last Done: 01/31/24 19:41
Discharge Date and Time
Discharge Date/Time: 01/31/24 22:58
[2024-01-31] MEDS: ELIQUIS 5 MG PO (22:52)
[2024-01-31 22:56] VITALS: BP 141/79
== END 2024-01-31 22:58 | disposition home or self-care (01) ==
LOC: EMR 15:45
PROVIDERS: EMERGENCY PHYSICIAN Emergency Medicine; FAMILY PHYSICIAN Family Medicine
DX: J45.901 Unspecified asthma with (acute) exacerbation (principal); I48.91 Unspecified atrial fibrillation; E11.65 Type 2 diabetes mellitus with hyperglycemia; I10 Essential (primary) hypertension; I25.10 Atherosclerotic heart disease of native coronary artery without angina pectoris
CPT/HCPCS: 99284; 96374; 96372; 96361; 71046; 80053; 82962; 84484; 85025; 93005

== ENCOUNTER 2024-02-16 08:18 | Emergency (ER) | payer OTHER, SELFPAY ==
[2024-02-16 08:40] VITALS: BP 147/83
--- NOTE | 2024-02-16 09:50 | ED.GENMED ---
History of Present Illness
General
Chief Complaint: Facial Problem
Source: patient
Exam Limitations: none
Time Seen by Provider: 02/16/24 09:45
Nursing documentation reviewed up to this point in time: agreed with
Travel History
Have you had any contact with someone who has COVID-19?: No
Do you have any symptoms of coronavirus? Fever > 100 degrees, chills, cough, shortness of breath, sore throat, loss of taste or smell, muscle aches, or headache?: No
History of Present Illness
History of Present Illness:
48-year-old male with past medical history of A-fib on anticoagulation, hypertension PTSD diabetes presents to the ER for evaluation of left-sided facial swelling that he noticed last night. He reports he noticed discomfort and then noticed mild
swelling to the area but now swelling has increased. He is starting to feel like he ' is coming down with something.' He however denies fevers.
He denies any dental pain.
Past History
Past History
ED Past Medical History: Asthma, GERD, HTN and NIDDM
ED Past Surgical History: Orthopedic
Social History
Tobacco: Non-smoker
Alcohol: None
Drug: None
Personal:
Living: with family
Review of Systems
Review of Systems
Allergies reviewed?: Yes
All Other Systems: ROS reviewed and negative except as documented in HPI and ROS
Constitutional: Denies fever or chills
EENT: Reports other (left sided facial swelling )
Respiratory: Reports no symptoms
Cardiac: Reports no symptoms
ABD/GI: Reports no symptoms
Musculoskeletal: Reports no symptoms
Skin: Reports no symptoms
Neurological: Reports no symptoms
Psychiatric: Reports no symptoms
Phy Exam
General Physical Exam
General Presentation: no apparent distress
General age: appears stated age
General Skin: warm and dry
General Habitus: normal
General Mental: alert
General Hydration: appears well hydrated
ENT Exam
ENT Exam: pharynx normal and other (Patient with swelling of the left parotid region no obvious dental abscess or gum swelling no trismus tolerating secretions well no drooling)
Neurological Exam
Neurological Exam: alert and oriented x3
Musculoskeletal Exam
Musculoskeletal Exam: full ROM
Skin Exam
Skin Exam: normal color and warm/dry
Course
Orders/Labs/Results
Orders:
Orders
02/16/24 10:01
IV Insert/Care/Rem.- Treatment PRN
02/16/24 10:04
CT Neck With Iv Contrast Urgent
Reason For Exam: left sided facial swelling
02/16/24 10:26
Complete Blood Count/With Diff Urgent
Comprehensive Metabolic Panel Urgent
02/16/24 12:40
Acetaminophen [Tylenol] 1,000 mg PO NOW STA
Abnormal Lab Results
02/16/24
10:26
RBC 4.39 L 10^6/uL
(4.70-6.10)
Plt Count 122 L 10^3/uL
(130-400)
MPV 11.1 H fL
(7.4-10.4)
BUN 22 H mg/dl
(9-20)
Glucose 197 H mg/dl
(70-99)
ALT 72 H U/L
(0-50)
02/16/24 10:26
02/16/24 10:26
Vital Signs
Initial and Last Documented VS:
Initial Vital Signs
Temp Pulse Resp BP Pulse Ox
98.2 F 78 20 147/83 98
02/16/24 08:40 02/16/24 08:40 02/16/24 08:40 02/16/24 08:40 02/16/24 08:40
Last Documented Vital Signs
Temp Pulse Resp BP Pulse Ox
98.2 F 78 20 147/83 98
02/16/24 08:40 02/16/24 08:40 02/16/24 08:40 02/16/24 08:40 02/16/24 08:40
Jeweler Apprentice consulted with Physician
Jeweler Apprentice consulted with physician?: Yes
Name of Physician Consulted: elaina
MDM/Problems Addressed
Differential Diagnosis Includes:
Not limited to facial abscess, parotiditis
MDM/Problems Addressed:
CAT scan shows left parotitis. Patient is in no acute distress denies any fevers and is afebrile here with a normal white count. Throat is clear patient following secretions well. Discussed with ED physician will still cover with Augmentin with
close outpt f/u by pcp. Glucose is elevated at 197 creatinine normal. No gap. Patient was in no acute distress.
*Critical Care Note
Total Time (30-74mins, 75-104mins- exclusive of procedures): Not Applicable
ED Attending Note
-
Portions of this chart may have been created with voice recognition software.� Occasional wrong word or��sound alike� substitutions may have occurred due to the inherent limitations of voice recognition software.
Discharge Plan
Departure
Patient Disposition: Home (Routine Discharge)
Date of Disposition: 02/16/24
Time of Disposition: 13:10
Patient with high blood pressure during this ER visit?: Yes
Condition: Fair
Covid-19: Not Applicable
Discharge Problem:
Acute parotitis
Instructions: Parotitis, BLOOD PRESSURE
Prescriptions:
New
amoxicillin-pot clavulanate 875-125 mg tablet
1 tab PO BID Qty: 20 0RF
No Action
atorvastatin 10 mg tablet
10 mg PO HS
dextroamphetamine-amphetamine 10 mg tablet
10 mg PO DAILY@1200
Patient Comments:
12/12/2023: last filled 10/28/23, 30 tabs for 30 days from [facility]#[id number]
pantoprazole 40 mg tablet,delayed release (DR/EC)
40 mg PO DAILY
furosemide 20 mg tablet
20 mg PO DAILY
diltiazem HCl 180 mg capsule,ext.rel 24h degradable
180 mg PO DAILY
dextroamphetamine-amphetamine 15 mg capsule,extended release 24hr
15 mg PO DAILY
Patient Comments:
12/12/2023: last filled 10/28/23, 30 tabs for 30 days from [facility]#[id number]
Ozempic 0.25 mg or 0.5 mg (2 mg/3 mL) pen injector
0.25 mg SC TU
insulin glargine [Lantus Solostar U-100 Insulin] 100 unit/mL (3 mL) insulin pen
18 unit SC DAILY Qty: 0 0RF
albuterol sulfate 2.5 mg /3 mL (0.083 %) solution for nebulization
2.5 mg inhalation Q4H PRN (Reason: shortness of breath or wheezing) Qty: 90 0RF
Referrals:
Kim Simon NP [Family Provider] -
Activity Restrictions/Additional Instructions:
As discussed a prescription for Augmentin was sent to your pharmacy take as directed. Stay well-hydrated. Please use our candies. Follow-up closely with family doctor the next several days for reevaluation of symptoms and return if any worsening
of symptoms including worsening swelling fever chills difficulty breathing difficulty swallowing on secretions or any further concerns.
Interventions
Interventions:
*ED COVID-19 Vaccine History Last Done: 02/16/24 08:40
ED- Neurological Assessment Last Done: 02/16/24 11:10
ED-Skin Assessment Last Done: 02/16/24 11:10
Discharge Date and Time
Print Language: SLOVAK
[2024-02-16 10:36] LABS: % Basophils 0.4 % (0-2); % Eosinophils 1.6 % (0-6); % Immature Granulocytes 0.4 % (0-0.5); % Lymphocytes 20.6 % (20.5-51.1); % Monocytes 7.5 % (1.7-9.3); % Neutrophils 69.5 % (42.2-75.2); Absolute Eosinophils 0.1 10^3/uL (0-0.7); Absolute Lymphocytes 1.7 10^3/uL (1.2-3.4); Absolute Monocytes 0.6 10^3/uL (0.1-0.6); Absolute Neutrophils 5.8 10^3/uL (1.4-6.5); Hematocrit 39.6 % (39.0-52.0); Hemoglobin 13.6 g/dL (13.0-18.0); Mean Corp Hgb Conc. 34.3 g/dL (33.0-37.0); Mean Corpuscular Volume 90.2 fL (80.0-94.0); Mean Platelet Volume 11.1 fL (7.4-10.4); Nucleated Red Blood Cells % 0 % (-); Platelet Count 122 10^3/uL (130-400); Red Blood Cell Count 4.39 10^6/uL (4.70-6.10); White Blood Cell Count 8.3 10^3/uL (4.8-10.8)
[2024-02-16 10:43] LABS: ALT (SGPT) 72 U/L (0-50); AST (SGOT) 33 U/L (17-59); Albumin 4.1 g/dl (3.5-5.0); Alkaline Phosphatase 66 U/L (38-126); Blood Urea Nitrogen 22 mg/dl (9-20); Calcium 8.8 mg/dl (8.4-10.2); Carbon Dioxide 26 mmol/L (22-30); Chloride 102 mmol/L (98-107); Glucose 197 mg/dl (70-99); Potassium 4.3 mmol/L (3.5-5.1); Sodium 136 mmol/L (135-145); Total Bilirubin 0.6 mg/dl (0.2-1.3); Total Protein 6.7 g/dl (6.3-8.2); eGFR > 60.00
[2024-02-16] MEDS: TYLENOL 1000 MG PO (12:44)
== END 2024-02-16 13:24 | disposition home or self-care (01) ==
LOC: EMR 08:18
PROVIDERS: Nurse Practitioner; EMERGENCY PHYSICIAN Emergency Medicine; FAMILY PHYSICIAN Nurse Practitioner Family
DX: K11.21 Acute sialoadenitis (principal); I10 Essential (primary) hypertension; E11.65 Type 2 diabetes mellitus with hyperglycemia; Z79.01 Long term (current) use of anticoagulants
CPT/HCPCS: 99285; 70491; 80053; 85025; Q9967

== ENCOUNTER 2024-02-17 10:13 | Inpatient (IN) | payer OTHER, SELFPAY ==
[2024-02-17 08:06] VITALS: BP 126/100
--- NOTE | 2024-02-17 08:26 | ED.GENMED ---
History of Present Illness
General
Chief Complaint: Facial Problem
Source: patient
Exam Limitations: none
Time Seen by Provider: 02/17/24 08:09
Travel History
Have you had any contact with someone who has COVID-19?: No
Do you have any symptoms of coronavirus? Fever > 100 degrees, chills, cough, shortness of breath, sore throat, loss of taste or smell, muscle aches, or headache?: No
History of Present Illness
History of Present Illness:
48-year-old male history of diabetes with progressive left facial swelling extending into his neck. Seen yesterday and diagnosed with proctitis. Started Augmentin. Symptoms progressed overnight. Some increased swelling pain ear pain and some
swelling into the left side of the neck. No trouble breathing or swallowing. No fever.
Past History
Past History
ED Past Medical History: Asthma, GERD, HTN and NIDDM
ED Past Surgical History: Orthopedic
Social History
Tobacco: Non-smoker
Alcohol: None
Drug: None
Personal:
Living: with family
Review of Systems
Review of Systems
All Other Systems: Not applicable
Constitutional: Denies fever or chills
Respiratory: Denies trouble breathing
Phy Exam
Physical Exam
Physical Exam:
GENERAL: Alert and oriented in no apparent distress
EYE: Orbits normal.
NECK: Supple, left submandibular adenopathy swelling of the left angle of the mandible moderate and tender nature. Minimal swelling to the lateral neck.
ENT: Pharynx without erythema. No drooling no stridor. No trismus. Speech normal.
CARDIAC: Regular rate and rhythm without any obvious murmurs.
LUNGS: Clear breath sounds,normal
NEUROLOGICAL: Alert and oriented , grossly non-focal
SKIN: Warm and dry
MUSCULOSKELETAL: No edema,no deformity.Good color
PSYCH: Normal and appropriate interaction.
Course
Orders/Labs/Results
Orders:
Orders
02/17/24 08:18
IV Insert/Care/Rem.- Treatment PRN
0.9% Sodium Chloride 1000 ml [Nss] 1,000 ml IV BOLUS
Ketorolac [Toradol] 15 mg IV NOW STA
Piperacillin/Tazo 4.5 Gram [Zosyn] 4.5 gram in 100 ml IV NOW
02/17/24 09:24
Basic Metabolic Panel Urgent
Complete Blood Count/With Diff Urgent
02/17/24 09:35
Admit/Transfer Patient As Directed
Co-Sign Provider:
Level of Care: Inpatient admission
Assign to:: Medical/Surgical
Physician / Group: Petrona Chambers - Hospitalists
Diagnosis: L parotitis, progressive
Reason for Hospitalization: L parotitis, progressive
Expected length of stay greater than two midnights?: Yes
ELOS- Estimated Length of Stay in days: 2
I certify the patient meets the requirements for IP care: Yes
02/17/24 09:37
Code Status As Directed
Resuscitation Status: Full Code
02/17/24 09:40
Oxycodone [Roxicodone] 5 mg PO Q4HPRN PRN
02/17/24 09:40
Diabetes Management by Nurse Practitioner Routine
Consulting Provider: Debbie Ponce
Was provider already notified?: Yes
Reason for Consult: Insulin Management
ENT CONSULT Routine
Consulting Provider: Zachary Shah
Was physician already notified: Yes
02/17/24 Lunch
1800 calorie (15 carb) Diabetic
At Your Request: Full Participation
Does patient need a safe tray?: No
02/17/24 11:04
Albuterol Nebs [Ventolin Nebules] 2.5 mg INH R Q4HPRN PRN
Bisacodyl [Dulcolax] 10 mg RECTAL DAILYPRN PRN
Diltiazem Extended Release [Cardizem Cd] 180 mg PO DAILY
Docusate W/Senna [Senokot-S] 1 tablet PO BIDPRN PRN
Ondansetron Injectable [Zofran] 4 mg IV Q6HPRN PRN
Polyethylene Glycol Powder [Miralax] 17 grams PO DAILYPRN PRN
02/17/24 11:04
Activity As Directed
Activity Level: As Tolerated
Pneumatic Compression Sleeves As Directed
Type: Knee high
Vital Signs As Directed
Frequency: Per unit guidelines
DX Deep Vein Thrombosis Video Routine
02/17/24 12:00
Amphet Asp/Amphet/D-Amphet [Adderall] 10 mg PO DAILY@1200
Ampicillin/Sulbactam 3 G [Unasyn] 3 gm 0.9% Sodium Chloride 100 ml [Nss] 100 ml IV Q6H
Dexamethasone Sod Phosphate [Decadron] 4 mg IV Q8H
02/17/24 15:30
Ketorolac [Toradol] 10 mg IV Q6HPRN PRN
02/17/24 20:00
METFORMIN HCl [Glucophage] 1,000 mg PO BID@0800,1700
02/17/24 22:00
Atorvastatin [Lipitor] 10 mg PO HS
02/18/24 06:00
Basic Metabolic Panel IN AM
Complete Blood Count/No Diff IN AM
02/18/24 08:00
Amphet Asp/Amphet/D-Amphet [Adderall] 15 mg PO DAILY
Furosemide [Lasix] 20 mg PO DAILY
Pantoprazole [Protonix] 40 mg PO DAILY
02/19/24 06:00
Basic Metabolic Panel IN AM
Complete Blood Count/No Diff IN AM
02/20/24 06:00
Basic Metabolic Panel IN AM
Complete Blood Count/No Diff IN AM
Abnormal Lab Results
02/17/24
09:24
RBC 4.65 L 10^6/uL
(4.70-6.10)
Plt Count 122 L 10^3/uL
(130-400)
MPV 10.9 H fL
(7.4-10.4)
Abs Immat Gran (auto) 0.1 H 10^3/uL
(0-0.05)
Absolute Neuts (auto) 6.6 H 10^3/uL
(1.4-6.5)
Absolute Monos (auto) 0.8 H 10^3/uL
(0.1-0.6)
Lymphocytes % 17.4 L %
(20.5-51.1)
Sodium 133 L mmol/L
(135-145)
Glucose 137 H mg/dl
(70-99)
02/17/24 09:24
02/17/24 09:24
Vital Signs
Initial and Last Documented VS:
Initial Vital Signs
Temp Pulse Resp BP Pulse Ox
98.8 F 98 16 126/100 98
02/17/24 08:06 02/17/24 08:06 02/17/24 08:06 02/17/24 08:06 02/17/24 08:06
Last Documented Vital Signs
Temp Pulse Resp BP Pulse Ox
98.8 F 98 16 126/100 98
02/17/24 08:06 02/17/24 08:06 02/17/24 08:06 02/17/24 08:06 02/17/24 08:06
MDM/Problems Addressed
MDM/Problems Addressed:
Patient symptoms have progressed in the last 24 hours. He has no acute airway issue. No trismus no drooling no stridor. Speech is normal. Contemplated repeat CAT scan but given that it was done 24 hours ago trying to avoid the radiation and do
not feel it is medically warranted at this time. I do feel IV antibiotics and close observation are appropriate. Patient is referred to hospitalist.
*Pulse Oximetry
Patient hypoxic: no
*Critical Care Note
Total Time (30-74mins, 75-104mins- exclusive of procedures): Not Applicable
Data Reviewed
Review of Other/Old Records Reveals: Labs, Radiology Studies and Testing
ED Attending Note
-
Portions of this chart may have been created with voice recognition software.� Occasional wrong word or��sound alike� substitutions may have occurred due to the inherent limitations of voice recognition software.
Discharge Plan
Departure
Patient Disposition: Admit
Date of Disposition: 02/17/24
Time of Disposition: 09:08
Presentation/result/management discussed w/ accepting MD/DO: Hospitalist
Discharge Problem:
Progressive parotitis, Diabetes
Interventions
Interventions:
*General Assessment Last Done: 02/17/24 09:32
*ED COVID-19 Vaccine History Last Done: 02/17/24 08:06
[2024-02-17] MEDS: TORADOL 15 MG IV (09:25)
[2024-02-17] MEDS: NSS 1000 IV (09:25)
--- NOTE | 2024-02-17 09:26 | HPS.HSE ---
Family Physician
-
Family Physician: Kim Simon NP
Chief Complaint
-
progressive symptoms of parotitis
History of Present Illness
48 y/o M hx of Afib, Essential HTN, IDDM, recent admission 2 months prior for tonsillitis and supraglottitis returns to ER for worsening parotitis symptoms. Patient presented to ER yesterday with 3 day history of swelling followed by pain along the
L parotid gland. A CT confirmed parotitis. He was discharged home on Augmentin. He reports symptoms of swelling and pain have progressed, and involve the neck with pain in the neck. Denies any difficulty breathing or wheezing. No fever/chills. No
other complaints.
Previously admitted in December with tonsillitis and supraglottitis discharged on Augmentin.
Medical History
Past Medical History
Past Medical History: Reports GERD and Other (hx of Afib, Essential HTN, IDDM, recent admission 2 months prior for tonsillitis and supraglottitis)
Past Surgical History: Reports Other (deviated septum, sinus surgery)
Social History
Tobacco: Non-smoker
Alcohol: None
Drug: None
Personal:
Living: With Family
Family History
Family History: Not pertinent
Allergies / Home Medications
Allergies reflects when Allergies were last updated in [facility].
Home Medications with original date entered in [facility]
Allergy/Medication List:
Allergies
Allergy/AdvReac Type Severity Reaction Status Date / Time
No Known Allergies Allergy Verified 02/17/24 08:08
Home Medications
atorvastatin 10 mg tablet 10 mg PO HS 12/12/23
dextroamphetamine-amphetamine 10 mg tablet 10 mg PO DAILY@1200 12/12/23
dextroamphetamine-amphetamine ER 15 mg 24hr capsule,extend release 15 mg PO DAILY 12/12/23
diltiazem HCl 180 mg capsule,extended release 24 hr, controlled 180 mg PO DAILY 12/12/23
furosemide 20 mg tablet 20 mg PO DAILY 12/12/23
pantoprazole 40 mg tablet,delayed release 40 mg PO DAILY 12/12/23
semaglutide 0.25 mg or 0.5 mg (2 mg/3 mL) subcutaneous pen injector (Ozempic) 0.25 mg SC WE 12/12/23
amoxicillin 875 mg-potassium clavulanate 125 mg tablet 1 tab PO BID #20 tabs 02/16/24
albuterol sulfate 2.5 mg/3 mL (0.083 %) solution for nebulization 2.5 mg inhalation R Q4HPRN PRN shortness of breath or wheezing 02/17/24
insulin glargine 100 unit/mL (3 mL) subcutaneous pen (Lantus Solostar U-100 Insulin) 14 unit SC QPM 02/17/24
metformin 1,000 mg tablet 1,000 mg PO BID 02/17/24
Review of Systems
-
A 12 point ROS was completed and negative except as noted: Yes
Physical Exam
Vital Signs
Vital Signs
Temp Pulse Resp BP Pulse Ox
98.8 F 98 16 126/100 98
02/17/24 08:06 02/17/24 08:06 02/17/24 08:06 02/17/24 08:06 02/17/24 08:06
Physical Exam
General: Well Developed and Well Nourished
HEENT: NormoCephalic, Anicteric and Other (L parotid gland enlarged, tender, with facial edema, extending down towards midline neck)
Respiratory: Clear; No Wheezes or Chest Tube
Cardiac: S1/S2 and Regular Rhythm
GI: Soft and Non Tender
Musculoskeletal: No Clubbing and No Cyanosis
Neuro: AO x 3
Psych: Calm
Data Reviewed
-
CT Scan: Report Reviewed by me, Discussed with Physician and Discussed with Patient
Lab Data: Labs Reviewed by me, Discussed with Physician and Discussed with Patient
Impression/Plan
-
Assessment:
Acute Left parotitis, progressive
- noted recent hospitalization in Dec 2023 for tonsillitis and supraglottitis
- CT 02/15: mild asymmetric inflammatory fat stranding about the left parotid gland, most suspicious for parotitis. No evidence for a sialolith. The right parotid gland is unremarkable. The bilateral submandibular glands are unremarkable.
- discharged from ER on Augmentin, but symptoms progressed
- admit
- IV Unasyn
- IV steroids
- pain control
- ENT evaluation, TT placed to Dr. Shah
IDDM
- continue Metformin
- continue Lantus
- add SSI
- hold Ozempic
- PET FOOD DEBONER consult; with steroids, likely will need adjustments
Hx of parox Afib
Essential HTN
- currently in sinus
- continue Diltiazem
HLD - statin
GERD
- PPI
Anxiety/Bipolar/PTSD
- continue Dextroamphetamine/amphetamine combo
Hx of Asthma - prn nebs
DVT ppx: SCDs
Code: Full
[2024-02-17 09:54] LABS: % Basophils 0.3 % (0-2); % Eosinophils 1.1 % (0-6); % Immature Granulocytes 0.5 % (0-0.5); % Lymphocytes 17.4 % (20.5-51.1); % Monocytes 8.7 % (1.7-9.3); Absolute Eosinophils 0.1 10^3/uL (0-0.7); Absolute Immature Granulocytes 0.1 10^3/uL (0-0.05); Absolute Lymphocytes 1.6 10^3/uL (1.2-3.4); Absolute Monocytes 0.8 10^3/uL (0.1-0.6); Absolute Neutrophils 6.6 10^3/uL (1.4-6.5); Hematocrit 41.3 % (39.0-52.0); Hemoglobin 14.2 g/dL (13.0-18.0); Mean Corp Hgb Conc. 34.4 g/dL (33.0-37.0); Mean Corpuscular Hgb 30.5 pg (27.0-31.0); Mean Corpuscular Volume 88.8 fL (80.0-94.0); Mean Platelet Volume 10.9 fL (7.4-10.4); Nucleated Red Blood Cells % 0 % (-); Platelet Count 122 10^3/uL (130-400); Red Blood Cell Count 4.65 10^6/uL (4.70-6.10); Red Cell Dist. Width 13.2 % (11.5-14.5); White Blood Cell Count 9.2 10^3/uL (4.8-10.8)
[2024-02-17 10:09] LABS: Blood Urea Nitrogen 15 mg/dl (9-20); Calcium 9.1 mg/dl (8.4-10.2); Carbon Dioxide 25 mmol/L (22-30); Chloride 102 mmol/L (98-107); Glucose 137 mg/dl (70-99); Sodium 133 mmol/L (135-145); eGFR > 60.00
[2024-02-17] MEDS: ZOSYN 100 IV (10:54)
[2024-02-17] MEDS: ROXICODONE 5 MG PO (11:26)
--- NOTE | 2024-02-17 11:46 | CON.MD ---
Consultation - Medical
-
dictated.
L parotitis, worsened since yesterday.
On Unasyn, Decadron, analgesics.
OK to start po's as tolerated.
Consider immunologic w/u as he has had several different infections over the last 2 mo.
will follow.
--- NOTE | 2024-02-17 12:06 | PN.DE.MGMTRT ---
Insulin Management
- -
02/17/2024 Diabetes Management Consult
Patient admitted with L parotitis, with recent admission for similar infection. PMH includes, HTN, diabetes, tonsillitis, supraglottitis, afib. Last A1C 9%, cr .7, eGFR > 60.
Patient awake alert and oriented in significant pain. He is able to answer questions regarding diabetes care prior to admission. He is not sure if he took his lantus last hs due to pain but glucose well controlled now., 137 on admission.
He is receiving dexamethasone 4 mg IV Q 8 hours. Lantus 14 units home dose has been order for HS, metformin 1000 mg bid ordered. Will add corrective insulin due to steroids.
Patient has [employer] CGM working.
Diabetes History
- -
Type of Diabetes: 2
Pre-Admission Diabetes Regimen
02/17/24
09:24
Creatinine 0.7
Insulin Pump Settings
IP Diabetes Regimen
02/17/24
09:24
Glucose 137 H
Patient Education
[2024-02-17] MEDS: NOVOLOG FLEXPEN-MODERATE RESISTANCE SC (13:20)
[2024-02-17 13:26] VITALS: BP 119/68
[2024-02-17] MEDS: UNASYN IV ×3 (13:30→23:45)
[2024-02-17] MEDS: CARDIZEM CD 180 MG PO (13:30)
[2024-02-17] MEDS: DECADRON 4 MG IV ×2 (13:30→20:35)
[2024-02-17 14:32] VITALS: BP 155/85
[2024-02-17 14:34] VITALS: BMI 36.0
[2024-02-17 14:48] LABS: Glucose - Point of Care 120 mg/dl (70-99)
[2024-02-17 15:05] VITALS: BMI 36.0
[2024-02-17 16:49] LABS: Glucose - Point of Care 215 mg/dl (70-99)
[2024-02-17] MEDS: LANTUS 0.140000000000000013 UNITS SC (17:36)
[2024-02-17] MEDS: NOVOLOG FLEXPEN-MODERATE RESISTANCE 3 UNITS SC (17:36)
[2024-02-17] MEDS: GLUCOPHAGE 1000 MG PO (20:35)
[2024-02-17] MEDS: LIPITOR 10 MG PO (20:38)
--- NOTE | 2024-02-17 21:42 | PTCARENOTE ---
[facility] 1400 Pt came to floor from ED. Pt able to ambulate into room unassisted. Pt assessment and admission done. Pt with no c/o at that time. Call hyatt within reach and pt instructed to call for assistance.
[2024-02-17 21:54] LABS: Glucose - Point of Care 253 mg/dl (70-99)
[2024-02-17 23:36] VITALS: BP 137/74
[2024-02-18] MEDS: DECADRON 4 MG IV ×3 (05:08→20:01)
[2024-02-18] MEDS: UNASYN IV ×4 (05:09→23:16)
[2024-02-18] MEDS: TORADOL 10 MG IV ×2 (06:29→23:52)
[2024-02-18 07:30] VITALS: BP 144/73
[2024-02-18 07:42] LABS: Glucose - Point of Care 261 mg/dl (70-99)
[2024-02-18 08:04] VITALS: BP 159/81
[2024-02-18] MEDS: NOVOLOG FLEXPEN-MODERATE RESISTANCE 5 UNITS SC (08:05)
[2024-02-18] MEDS: LASIX 20 MG PO (08:06)
[2024-02-18] MEDS: PROTONIX 40 MG PO (08:06)
[2024-02-18] MEDS: GLUCOPHAGE 1000 MG PO ×2 (08:06→18:35)
[2024-02-18] MEDS: CARDIZEM CD 180 MG PO (08:06)
[2024-02-18 08:09] LABS: Hematocrit 42.2 % (39.0-52.0); Hemoglobin 14.3 g/dL (13.0-18.0); Mean Corp Hgb Conc. 33.9 g/dL (33.0-37.0); Mean Corpuscular Hgb 30.2 pg (27.0-31.0); Mean Corpuscular Volume 89.2 fL (80.0-94.0); Mean Platelet Volume 11.2 fL (7.4-10.4); Platelet Count 139 10^3/uL (130-400); Red Blood Cell Count 4.73 10^6/uL (4.70-6.10); Red Cell Dist. Width 12.8 % (11.5-14.5); White Blood Cell Count 9.4 10^3/uL (4.8-10.8)
--- NOTE | 2024-02-18 08:15 | PN.DE.MGMTRT ---
Insulin Management
- -
02/18/2024 Diabetes Management F/U:
Patient admitted with L parotitis, with recent admission for similar infection. PMH includes, HTN, diabetes, tonsillitis, supraglottitis, A-Fib. Last A1C 9% on 12/13/23, Cr 0.7, eGFR > 60.
Patient awake alert and oriented in significant pain. He is able to answer questions regarding diabetes care prior to admission. Was taking Lantus 14 units @ HS, Metformin 1000 mg BID and Ozempic Q
He is currently on steroids, dexamethasone 4 mg IV Q 8 hours and glucose has trended up, was 253 @ HS AND 261 fasting this AM.
Lantus 14 units home dose has been order for HS, metformin 1000 mg bid ordered
Will increase Lantus to 18 units and change to high corrective due to steroids, change diet to 1999 ADA, discussed with pt and he was agreeable.
Patient has CGM- [employer] in Left upper arm working.
Had Lengthy discussion with pt regarding A1C in relation to uncontrolled diabetes and persistently elevated blood glucose levels.
Discussed implications of Elevated A1C and chronic diabetes related complications. Pt was made aware of risk for recurrent infections if diabetes remains uncontrolled. I discussed diet with pt and emphasized low carb diet with portion control,
exercise and weight loss.
Pt states that he does not follow a meal plan and does not eat a diabetic diet. He states that his mother never talked to him about eating fruits and vegetables and he 'NEVER' eats those types of foods at home.
Encouraged pt to make an effort to follow a healthy eating pattern. He was provided a flyer for DMSE Classes with a phone number during his last hospital stay but states that he is not motivated to have diabetes education or meet with a registered
dietitian because he does not have the time to.
Diabetes History
- -
Type of Diabetes: 2 requiring insulin
Pre-Admission Diabetes Regimen
02/17/24
09:24
Creatinine 0.7
Insulin Pump Settings
IP Diabetes Regimen
0402/17/24 02/17/24
:24 14:44 16:45
Glucose 137 H
POC Glucose 120 H 215 H
02/17/24 02/18/24
21:50 07:30
Glucose
POC Glucose 253 H 261 H
Meal type: Dinner
Amount consumed: 100%
Patient Education
[2024-02-18 08:53] LABS: Blood Urea Nitrogen 18 mg/dl (9-20); Calcium 9.3 mg/dl (8.4-10.2); Carbon Dioxide 23 mmol/L (22-30); Chloride 101 mmol/L (98-107); Estimated Creatinine Clearance > 125 ml/min; Glucose 261 mg/dl (70-99); Potassium 4.3 mmol/L (3.5-5.1); Sodium 133 mmol/L (135-145); eGFR > 60.00
--- NOTE | 2024-02-18 09:41 | W.PN.HOSP.TC ---
Today's Communication/Plan
-
increase Lantus - follow ACCOUNT DIRECTOR recs
continue steroids/Unasyn
immunodeficiency workup
follow ENT recs
Assessment / Plan
Assessment / Plan
Assessment:
Acute Left parotitis, progressive
- noted recent hospitalization in Dec 2023 for tonsillitis and supraglottitis
- CT 02/15: mild asymmetric inflammatory fat stranding about the left parotid gland, most suspicious for parotitis. No evidence for a sialolith. The right parotid gland is unremarkable. The bilateral submandibular glands are unremarkable.
- discharged from ER on Augmentin, but symptoms progressed
- continue IV Unasyn, day 2
- continue IV steroids, day 2
- pain control
- ENT following; continue medical management at this time.
- given recent ENT infections recurrent and recent viral infections (flu, stomach virus) - they recommended immunodeficiency workup.
- patient reports recent HIV/Hep testing negative during life insurance setup
- will send SPEP, immunoglobulins, HIV repeat, UA
IDDM, with increasing hyperglycemia in setting of steroids
- continue Metformin
- continue Lantus; increased to 18 units
- continue SSI
- hold Ozempic
- ACCOUNT DIRECTOR following
Hx of parox Afib
Essential HTN
- currently in sinus
- continue Diltiazem
HLD - statin
GERD
- PPI
Anxiety/Bipolar/PTSD
- continue Dextroamphetamine/amphetamine combo
Hx of Asthma - prn nebs
DVT ppx: SCDs
Code: Full
Anticipated Discharge: 24 - 48 hours
Subjective/Interval History
-
Date of Service: February 18, 2024
facial swelling and redness improving
pain improving
no breathing issues or issues with oral intake
Objective Data
-
Labs:
Laboratory Results
02/18/24
07:24
WBC 9.4
Hgb 14.3
Hct 42.2
Plt Count 139
Sodium 133 L
Potassium 4.3
Chloride 101
Carbon Dioxide 23
BUN 18
Creatinine 0.6 L
Glucose 261 H
Calcium 9.3
Vital Signs:
Vital Signs
Temp Pulse Resp BP Pulse Ox
97.8 F 77 24 159/81 100
02/18/24 07:30 02/18/24 08:06 02/18/24 07:30 02/18/24 08:06 02/18/24 08:04
I&O
02/17/24 02/18/24 02/19/24
06:59 06:59 06:59
Intake Total 2079
Balance 2079
Physical Exam
-
General: Well Developed and Well Nourished
HEENT: Normocephalic, Atraumatic and Other (improved L parotitis, less swollen, minimal tenderness)
Respiratory: Clear to Auscultation; Negative Wheezes or Rales
Cardiac: Regular Rhythm and S1/S2
GI: Soft and Nontender
Genito-urinary: No Costovertebral Tender
Neuro: AO x 3
Hematologic / Lymphatic: No Lymphadenopathy
Psych: Calm
Data Reviewed
-
Total Time Spent with Patient (in minutes): 42
Labs: Labs Reviewed by me
--- NOTE | 2024-02-18 11:48 | CM ---
Patient seen bedside, patient reports nothing has changed from his last admission. Patient denies any needs upon discharge. Per previous CM note, Patient reports he resides with his and nine children in a multiple story home. Patient denies
DME, VN, or SNF. Patient confirms pharmacy used [facility], PCP Kim Paez, CM will continue to follow for discharge planning needs.
Plan; home no needs anticipated.
[2024-02-18 12:21] LABS: Glucose - Point of Care 253 mg/dl (70-99)
--- NOTE | 2024-02-18 12:23 | W.PN.ENT ---
Today's Communication
-
see above
Impression / Plan
-
Acute L Parotitis, dramatically better today.
Agree with 1 more day of IV Abx. If continues to do well, anticipate dc tomorrow.
Can't really say he failed augmentin, which is still a good choice, though a good alternative would be levaquin.
Recommend tapering steroids rapidly
Pt instructed on how to massage the gland, hydrate well, and restart lemon wedges.
He will call us if he has any further problems.
Call me if he is any worse tomorrow.
Immunology w/u pending, but recent problems could certainly be from DM.
Subjective Data
-
pt feels dramatically better, no pain now, much less swelling, +po's, no further trismus, no dyspnea. no foul taste.
Objective Data
-
Vital Signs
Temp Pulse Resp BP Pulse Ox
97.8 F 77 24 159/81 100
02/18/24 07:30 02/18/24 08:06 02/18/24 07:30 02/18/24 08:06 02/18/24 08:04
Intake & Output
02/17/24 02/18/24 02/19/24
06:59 06:59 06:59
Intake:
Oral fluids 1080 / 1080
IV fluids (Total) 1000 / 1000
NSS 1000 / 1000
Other:
Number of approximated MODERATE 2
amounts of urine
Lab Results
02/18/24 07:24
02/18/24 07:24
Calcium 9.3 mg/dl (8.4-10.2) 02/18/24 07:24
Physical Exam
-
97.8
A&O, no h/s/d
OC/OP little clear saliva from Zabrina's duct. No palpable stone.
Neck still with L parotid swelling, reduced, no tenderness, no fluctuance
WBC 9.4
glu 261
[2024-02-18] MEDS: NOVOLOG FLEXPEN-HIGH RESISTANCE 7 UNITS SC (12:48)
--- NOTE | 2024-02-18 14:54 | PN.CDI ---
CDI
- -
CDI:
Physician Documentation Request
Admit Date: 02/17/24 10:13
Dear Doctor Trish,
Patient admitted with acute left parotitis.
Na levels documented below:
Patient received IV NSS.
Laboratory Tests
02/17/24 02/18/24
07:24
Sodium 133 L 133 L
Based on the above, please clarify in the progress notes, the appropriate diagnosis, if significant, that supports the above abnormalities and additional evaluation, monitoring and/or treatment rendered:
Hyponatremia
Insignificant abnormal lab findings
Other
Use of terms such as suspected, likely, concern for, or probable (associated with a specific diagnosis that is being evaluated, monitored, or treated as if it exists) are acceptable and can be coded in the inpatient setting, when documented at the
time of discharge.
Thank you,
Corina SALDAÑA,RN,CCDS
CDI Specialist
Available via [facility] text
Please use your independent medical judgment in providing your response.
[2024-02-18 15:00] VITALS: BP 139/71
[2024-02-18 16:49] LABS: Urine Albumin Negative (Neg - Trace); Urine Bilirubin Negative (Negative); Urine Character Clear (Clear); Urine Color Straw; Urine Glucose 3+ (Negative); Urine Ketone Trace (Negative); Urine Leukocyte Negative (Negative); Urine Nitrite Negative (Negative); Urine Occult Blood Negative (Negative); Urine Specific Gravity 1.015 (<1.030); Urine Urobilinogen Negative (Neg - 1+)
[2024-02-18 17:22] LABS: Glucose - Point of Care 389 mg/dl (70-99)
[2024-02-18] MEDS: LANTUS 0.179999999999999993 UNITS SC (18:36)
[2024-02-18] MEDS: NOVOLOG FLEXPEN-HIGH RESISTANCE 12 UNITS SC (18:36)
[2024-02-18] MEDS: LIPITOR 10 MG PO (20:01)
[2024-02-18 21:34] LABS: Glucose - Point of Care 200 mg/dl (70-99)
[2024-02-18 23:26] VITALS: BP 132/78
[2024-02-19] MEDS: UNASYN IV (05:25)
[2024-02-19] MEDS: DECADRON 4 MG IV (05:25)
[2024-02-19 07:44] VITALS: BP 136/90
[2024-02-19 07:44] LABS: Glucose - Point of Care 201 mg/dl (70-99)
[2024-02-19 08:33] LABS: Hematocrit 41.1 % (39.0-52.0); Hemoglobin 14.5 g/dL (13.0-18.0); Mean Corp Hgb Conc. 35.3 g/dL (33.0-37.0); Mean Corpuscular Volume 87.8 fL (80.0-94.0); Mean Platelet Volume 11.1 fL (7.4-10.4); Platelet Count 168 10^3/uL (130-400); Red Blood Cell Count 4.68 10^6/uL (4.70-6.10); White Blood Cell Count 12.8 10^3/uL (4.8-10.8)
[2024-02-19] MEDS: CARDIZEM CD 180 MG PO (08:44)
[2024-02-19] MEDS: GLUCOPHAGE 1000 MG PO (08:44)
[2024-02-19] MEDS: NOVOLOG FLEXPEN-HIGH RESISTANCE 4 UNITS SC (08:44)
[2024-02-19] MEDS: LASIX 20 MG PO (08:45)
[2024-02-19] MEDS: PROTONIX 40 MG PO (08:45)
[2024-02-19 09:10] LABS: Blood Urea Nitrogen 30 mg/dl (9-20); Calcium 9.7 mg/dl (8.4-10.2); Carbon Dioxide 27 mmol/L (22-30); Chloride 99 mmol/L (98-107); Estimated Creatinine Clearance > 125 ml/min; Glucose 217 mg/dl (70-99); Potassium 4.5 mmol/L (3.5-5.1); Sodium 136 mmol/L (135-145); eGFR > 60.00
--- NOTE | 2024-02-19 10:21 | W.PN.HOSP.TC ---
Today's Communication/Plan
-
dc to home
Assessment / Plan
Assessment / Plan
Assessment:
Acute Left parotitis, progressive
- noted recent hospitalization in Dec 2023 for tonsillitis and supraglottitis
- CT 02/15: mild asymmetric inflammatory fat stranding about the left parotid gland, most suspicious for parotitis. No evidence for a sialolith. The right parotid gland is unremarkable. The bilateral submandibular glands are unremarkable.
- discharged from ER on Augmentin, but symptoms progressed
- dc on steroid taper x 1
- dc on Augmentin x 12 more days
- ENT following; continue medical management at this time. Patient has info for prn follow up
- f/u immunodeficiency workup with PCP
IDDM, with increasing hyperglycemia in setting of steroids
- continue Metformin
- continue Lantus; increased to 18 units
- continue SSI
- hold Ozempic
- SWING FRAME GRINDER OPERATOR following
Hx of parox Afib
Essential HTN
- currently in sinus
- continue Diltiazem
HLD - statin
GERD
- PPI
Anxiety/Bipolar/PTSD
- continue Dextroamphetamine/amphetamine combo
Hx of Asthma - prn nebs
Chronic penile redness
- GC/Chlam neg, UA neg
- HIV pending; patient reports previously HIV testing neg
- patient refused exam today
- OP Urology evaluation
Hyponatremia
DVT ppx: SCDs
Code: Full
More than 30 minutes spent in discharge including
Final examination of the patient
Summarizing hospital stay
Instructions for continuing care to all relevant caregivers
Preparation of discharge records, prescriptions, and referral forms
Total time spent (in minutes): 41
Anticipated Discharge: Today
Subjective/Interval History
-
Date of Service: February 19, 2024
no new complaints
Objective Data
-
Labs:
Laboratory Results
02/19/24
07:57
WBC 12.8 H
Hgb 14.5
Hct 41.1
Plt Count 168 D
Sodium 136
Potassium 4.5
Chloride 99
Carbon Dioxide 27
BUN 30 H
Creatinine 0.7
Glucose 217 H
Calcium 9.7
Vital Signs:
Vital Signs
Temp Pulse Resp BP Pulse Ox
97.4 F 71 16 136/90 97
02/19/24 07:44 02/19/24 08:23 02/19/24 08:23 02/19/24 07:44 02/19/24 08:23
I&O
02/18/24 02/19/24 02/20/24
06:59 06:59 06:59
Intake Total 2079 720 / 720
Balance 2079 720 / 720
Physical Exam
-
General: No Apparent Distress
HEENT: Normocephalic and Atraumatic
Respiratory: Negative Wheezes or Rales
Cardiac: Regular Rhythm and S1/S2
GI: Soft and Nontender
Genito-urinary: No Costovertebral Tender
Neuro: AO x 3
Hematologic / Lymphatic: No Lymphadenopathy
Psych: Calm
Data Reviewed
-
Total Time Spent with Patient (in minutes): 42
Labs: Labs Reviewed by me
--- NOTE | 2024-02-19 10:37 | W.DS.TRANS ---
DC Summary - Financial Advisor Trainee
-
Discharge Instructions:
Sleep Apnea Risk Intermediate
Discharge Diagnosis/Procedures parotitis, uncontrolled diabetes
Diet Diabetic, Carb Controlled
Activity As tolerated
Bathing Restrictions None
Instructions:
Stand-Alone Forms:
Changes to Home Medications: No
Discharge Medications:
DC Medications w/original date entered in [facility]
atorvastatin 10 mg tablet 10 mg PO HS High Cholesterol 12/12/23
dextroamphetamine-amphetamine 10 mg tablet 10 mg PO DAILY@1200 Neurological Condition 12/12/23
dextroamphetamine-amphetamine ER 15 mg 24hr capsule,extend release 15 mg PO DAILY Neurological Condition 12/12/23
diltiazem HCl 180 mg capsule,extended release 24 hr, controlled 180 mg PO DAILY Blood Pressure 12/12/23
furosemide 20 mg tablet 20 mg PO DAILY Fluid Retention/Swelling 12/12/23
pantoprazole 40 mg tablet,delayed release 40 mg PO DAILY Gastrointestinal Issue 12/12/23
semaglutide 0.25 mg or 0.5 mg (2 mg/3 mL) subcutaneous pen injector (Ozempic) 1 mg SC WE Diabetes 12/12/23
albuterol sulfate 2.5 mg/3 mL (0.083 %) solution for nebulization 2.5 mg inhalation R Q4HPRN PRN shortness of breath or wheezing 02/17/24
metformin 1,000 mg tablet 1,000 mg PO BID Diabetes 02/17/24
acetaminophen 325 mg tablet 650 mg (2 x 325 mg) PO Q4HPRN PRN mild pain/SANTILLAN/temp> 100.4F #60 tabs 02/19/24
amoxicillin 875 mg-potassium clavulanate 125 mg tablet 1 tab PO BID #24 tabs 02/19/24
insulin glargine 100 unit/mL (3 mL) subcutaneous pen (Lantus Solostar U-100 Insulin) 18 unit (0.18 mL) SC QPM Diabetes #0 mL 02/19/24
prednisone 10 mg tablet 10 mg PO DIRECTED #12 tabs 02/19/24
Home Medication Changes
Pending Results: No
Total time spent discharging patient (in min): 41
--- NOTE | 2024-02-19 10:39 | CM ---
Chart reviewed and patient is for discharge to home today no needs.
Plan; Home no needs
--- NOTE | 2024-02-19 11:26 | W.PN.ENT ---
Today's Communication
-
Acute L Parotitis, dramatically better.
Plans dc to home today on augmentin, steroid taper.
Pt instructed on how to massage the gland, hydrate well, and restart lemon wedges.
He will call us if he has any further problems.
Also has two septal perforations and persistent deviated septum
He will f/u with me to discuss septal button placement.
Impression / Plan
-
Acute L Parotitis, dramatically better.
Plans dc to home today on augmentin, steroid taper.
Pt instructed on how to massage the gland, hydrate well, and restart lemon wedges.
He will call us if he has any further problems.
Also has two septal perforations and persistent deviated septum
He will f/u with me to discuss septal button placement.
Subjective Data
-
L neck swelling continues to decline, no pain, +po's, no further trismus, no dyspnea. no foul taste.
c/o long h/o intermittent L nasal obst, blows out large crusts, had attempted closure of septal perf long ago, uses saline, has tried irrigations.
Objective Data
-
Vital Signs
Temp Pulse Resp BP Pulse Ox
97.4 F 71 16 136/90 97
02/19/24 07:44 02/19/24 08:23 02/19/24 08:23 02/19/24 07:44 02/19/24 08:23
Intake & Output
02/18/24 02/19/24 02/20/24
06:59 06:59 06:59
Intake:
Oral fluids 1080 / 1080 720 / 720
IV fluids (Total) 1000 / 1000
NSS 1000 / 1000
Other:
Number of approximated MODERATE 2 3
amounts of urine
Number of approximated LARGE 4
amounts of urine
Lab Results
02/19/24 07:57
02/19/24 07:57
Calcium 9.7 mg/dl (8.4-10.2) 02/19/24 07:57
Urine Color Straw 02/18/24 16:34
Urine Clarity Clear (Clear) 02/18/24 16:34
Urine pH 6.0 (5.0-9.0) 02/18/24 16:34
Ur Specific [place] 1.015 (<1.030) 02/18/24 16:34
Urine Ketones Trace (Negative) A 02/18/24 16:34
Physical Exam
-
OC/OP little clear saliva from sang's duct
Neck with very little L parotid swelling, no tenderness, no fluctuance
[2024-02-21 04:02] LABS: IgA 194 mg/dl (70-400); IgG 1015 mg/dl (700-1600); IgM 118 mg/dl (40-230)
[2024-02-21 05:14] LABS: HIV Combo Negative (Negative)
[2024-02-22 22:54] LABS: Albumin 3.93 g/dL (3.75-5.01); Alpha 1 Globulin 0.34 g/dL (0.19-0.46); Alpha 2 Globulin 0.84 g/dL (0.48-1.05); SPEP IFE Reflex IFE Done
[2024-02-23 11:22] LABS: IgA 204 mg/dL (68-408); IgG 990 mg/dL (768-1632); IgM 127 mg/dL (35-263)
== END 2024-02-19 11:30 | disposition home or self-care (01) | DRG 155 ==
LOC: 4 WEST ACU 10:13
PROVIDERS: ADMITTING PHYSICIAN Internal Medicine; CONSULT PHYSICIAN Otolaryngology; EMERGENCY PHYSICIAN Emergency Medicine; FAMILY PHYSICIAN Nurse Practitioner Family
DX: K11.21 Acute sialoadenitis (principal); E87.1 Hypo-osmolality and hyponatremia; E11.65 Type 2 diabetes mellitus with hyperglycemia; I48.0 Paroxysmal atrial fibrillation; I10 Essential (primary) hypertension; K21.9 Gastro-esophageal reflux disease without esophagitis; J34.2 Deviated nasal septum; Z79.4 Long term (current) use of insulin
CPT/HCPCS: 80048; 81003; 82784; 82962; 84155; 84165; 85025; 85027; 86334; 87389; 87491; 87591; 96361; 96374; 99285

== ENCOUNTER → 2024-03-09 15:53 | Outpatient (REF) | payer OTHER, SELFPAY | LOC: HWRCS 15:53 | PROVIDERS: ATTENDING PHYSICIAN Internal Medicine Cardiovascular Disease | DX: I48.0 Paroxysmal atrial fibrillation (principal); I10 Essential (primary) hypertension; R06.02 Shortness of breath | CPT/HCPCS: 93306 ==

== ENCOUNTER 2024-11-08 00:02 | Emergency (ER) | payer OTHER, SELFPAY ==
[2024-11-08 00:21] VITALS: BP 150/90
[2024-11-08 00:32] VITALS: BP 150/71
[2024-11-08 00:47] VITALS: BMI 36.7
--- NOTE | 2024-11-08 00:50 | ED.GENMED ---
History of Present Illness
General
Chief Complaint: Cold/Flu/URI Symptoms
Source: patient
Exam Limitations: none
Time Seen by Provider: 11/08/24 00:26
History of Present Illness
History of Present Illness:
This is a 48 year old male that comes in with c/o chest pain and cough. States that he has been sick for a week. States that he had a coughing spell tonight and he almost passed out. States that his chest has been hurting all day. States that he
used his nebulizer before he came. States that he feels SOB with the cough and was dizzy. Denies any chest pain, at this time. Denies any fever, chills, abd pain, nausea, vomiting, diarrhea, headache, urinary burning.
Past History
Past History
ED Past Medical History: Arrthythmia ([place] fib), Asthma, GERD, HTN, NIDDM, Psychiatric and Other (Anxiety, Bipolar, PTSD)
ED Past Surgical History: Orthopedic (right ankle, ), Tonsilectomy and Other (Deviated septum, Sinus surgery, )
Social History
Tobacco: Non-smoker
Alcohol: None
Drug: None
Personal:
Living: with family
Review of Systems
Review of Systems
All Other Systems: ROS reviewed and negative except as documented in HPI and ROS
Constitutional: Reports no symptoms; Denies fever or chills
EENT: Reports no symptoms
Respiratory: Reports cough and trouble breathing
Cardiac: Reports chest pain
ABD/GI: Reports no symptoms; Denies abdominal pain, nausea, vomiting or diarrhea
: Reports no symptoms
Musculoskeletal: Reports no symptoms
Skin: Reports no symptoms
Neurological: Reports dizzy; Denies headache
Psychiatric: Reports no symptoms
Phy Exam
General Physical Exam
General Presentation: well appearing and no apparent distress
General age: appears stated age
General Skin: warm and dry
General Habitus: normal
General Mental: alert
General Hydration: appears well hydrated
ENT Exam
ENT Exam: TM's normal, pharynx normal and neck supple
Eye Exam
Eye Exam: EOMI
Cardiovascular Exam
Cardiovascular Exam: regular rate/rhythm, no edema, no murmur and normal peripheral pulses
Pulmonary Exam
Pulmonary Exam: lungs clear, no respiratory distress, no rales, chest non tender, no crackles, no rhonchi, no wheezing and other (Dry cough noted)
Gastrointestinal Exam
Gastrointestinal Exam: normal bowel sounds, non tender, soft, no organomegaly, no pulsatile mass, non distended and other (Obese)
Musculoskeletal Exam
Musculoskeletal Exam: full ROM and no edema
Skin Exam
Skin Exam: normal color, warm/dry, no rash and no petechia
Psychiatric Exam
Psychiatric Exam: normal mood/affect
Course
Orders/Labs/Results
Orders:
Orders
11/08/24 00:12
ECG [Electrocardiogram (*1)] Urgent
Reason for Study: Chest Pain
EKG- Treatment ONCE
11/08/24 00:42
Comprehensive Metabolic Panel Urgent
Troponin I Urgent
11/08/24 00:43
Complete Blood Count/With Diff Urgent
11/08/24 00:49
Dexamethasone Sod Phosphate [Decadron] 20 mg IV NOW STA
CR Chest - 2 Views Urgent
Comment:
Reason For Exam: chest pain, cough
11/08/24 00:56
COVID-19 Antigen Urgent
Source: Nasal Swab
Influenza A+B Rapid Molecular Urgent
CORINA Source: Nasal Swab
Specimen Description:
Abnormal Lab Results
11/08/24 11/08/24
00:42 00:43
RBC 4.63 L 10^6/uL
(4.70-6.10)
MPV 11.2 H fL
(7.4-10.4)
Chloride 97 L mmol/L
(98-107)
BUN 21 H mg/dl
(9-20)
Glucose 217 H mg/dl
(70-99)
11/08/24 00:43
11/08/24 00:42
chloride slightly low. Very slight Dehydration. hyperglycemia. Troponin <0.012, COVID and influenza negative.
Vital Signs
Initial and Last Documented VS:
Initial Vital Signs
Pulse Resp BP Pulse Ox
90 24 150/90 98
11/08/24 00:21 11/08/24 00:21 11/08/24 00:21 11/08/24 00:21
Last Documented Vital Signs
Pulse Resp BP Pulse Ox
84 19 150/71 96
11/08/24 01:00 11/08/24 01:00 11/08/24 00:32 11/08/24 01:00
MDM/Problems Addressed
Differential Diagnosis Includes:
PNA, coronary syndrome,
MDM/Problems Addressed:
This is a 48 year old male that comes in with c/o chest pain and cough. States that he had chest pain all day and has been sick for a week. States that he did use his nebulizer before he came. States that he does not have chest pain now.
Will check labs, ECG. Chest x-ray and give IV steroids.
Back into see patient. Explained that his chest x-ray is negative for infection. Patient is negative for COVID and Influenza, Troponin is normal. Discussed with patient that he was given IV steroids here and that he is a diabetic. State that he
will watch his sugar as he takes Metformin and Ozempic. States that he would rather have oral steroid as this is the only way he will get better. Will place patient on Oral sterids for the next 5 days. Patient to follow up with the family doctor or
return here with any concerns .
Chronic conditions affecting care: Asthma
Acute Exacerbation and/or Progression of Chronic Illness: Asthma
*Radiology
Radiology exam reviewed: preliminary read by ED provider (Chest- negative for active disease.)
*Pulse Oximetry
Patient hypoxic: no
*EKG
Interpreted by ED Provider?: Yes
Heart Rate: 87
Rate: normal
Rhythm: sinus
Isabella: normal axis
Interval: normal interval
QRS Pattern: normal QRS
Ischemia: no ischemia
*Hearing Consultant Interpretation
Rate: normal
Heart Rate: 94
Rhythm: sinus
*Critical Care Note
Total Time (30-74mins, 75-104mins- exclusive of procedures): Not Applicable
ED Attending Note
-
Portions of this chart may have been created with voice recognition software.� Occasional wrong word or��sound alike� substitutions may have occurred due to the inherent limitations of voice recognition software.
Discharge Plan
Departure
Patient Disposition: Home (Routine Discharge)
Date of Disposition: 11/08/24
Time of Disposition: 02:16
Patient with high blood pressure during this ER visit?: Yes
Condition: Good
Covid-19: Negative COVID-19
Discharge Problem:
Acute viral syndrome, Cough in adult
Instructions: Viral Syndrome (DC), Cough in adults - ED discharge instructions, BLOOD PRESSURE
Prescriptions:
New
prednisone 20 mg tablet
40 mg PO DAILY Qty: 10 0RF
No Action
atorvastatin 10 mg tablet
10 mg PO HS
dextroamphetamine-amphetamine 10 mg tablet
10 mg PO DAILY@1200
Patient Comments:
12/12/2023: last filled 10/28/23, 30 tabs for 30 days from [id number]
pantoprazole 40 mg tablet,delayed release (DR/EC)
40 mg PO DAILY
furosemide 20 mg tablet
20 mg PO DAILY
diltiazem HCl 180 mg capsule,ext.rel 24h degradable
180 mg PO DAILY
dextroamphetamine-amphetamine 15 mg capsule,extended release 24hr
15 mg PO DAILY
Patient Comments:
12/12/2023: last filled 10/28/23, 30 tabs for 30 days from [id number]
Ozempic 0.25 mg or 0.5 mg (2 mg/3 mL) pen injector
1 mg SC WE
albuterol sulfate 2.5 mg /3 mL (0.083 %) solution for nebulization
2.5 mg inhalation R Q4HPRN PRN (Reason: shortness of breath or wheezing)
metformin 1,000 mg Tablet
1,000 mg PO BID
prednisone 10 mg tablet
10 mg PO DIRECTED Qty: 12 0RF
Rx Instructions:
take 30mg x 2 days, then 20mg x 2 days, then 10mg x 2 days then stop
acetaminophen 325 mg Tablet
650 mg PO Q4HPRN PRN (Reason: mild pain/SANTILLAN/temp> 100.4F) Qty: 60 0RF
amoxicillin-pot clavulanate 875-125 mg tablet
1 tab PO BID Qty: 24 0RF
Patient Comments:
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
insulin glargine [Lantus Solostar U-100 Insulin] 100 unit/mL (3 mL) insulin pen
18 unit SC QPM Qty: 0 0RF
Referrals:
Kim Simon NP [Family Provider] - Follow up in 2-3 days
Activity Restrictions/Additional Instructions:
As discussed, your blood work shows you are a little Dehydrated. Please increaes your water intake to 8-8oz glasses daily. You are negative for COVID and Influenza and your chest X-ray is normal. You have been given IV steroids here and a
prescription has been sent to your Pharmacy. PLEASE WATCH YOUR BLOOD SUGAR. IF YOU HAVE INCREASED SHORTNESS OF BREATH, OR YOU HAVE ANY OTHER CONCERNS PLEASE RETURN TO THE EMERGENCY ROOM.
Interventions
Interventions:
*Risk Screen - Suicide Last Done: 11/08/24 00:21
*General Assessment Last Done: 11/08/24 00:47
*Neglect/Abuse Screening Last Done: 11/08/24 00:21
ED- Fall Risk Assessment Last Done: 11/08/24 00:47
*ED COVID-19 Vaccine History Last Done: 11/08/24 00:47
ED- Pulmonary Assessment Last Done: 11/08/24 00:47
Discharge Date and Time
Print Language: SWEDISH
[2024-11-08] MEDS: DECADRON 20 MG IV (00:58)
[2024-11-08 00:59] LABS: % Basophils 0.5 % (0-2); % Eosinophils 2.3 % (0-6); % Immature Granulocytes 0.3 % (0-0.5); % Lymphocytes 24.2 % (20.5-51.1); % Monocytes 7.1 % (1.7-9.3); % Neutrophils 65.6 % (42.2-75.2); Absolute Eosinophils 0.2 10^3/uL (0-0.7); Absolute Lymphocytes 2.1 10^3/uL (1.2-3.4); Absolute Monocytes 0.6 10^3/uL (0.1-0.6); Absolute Neutrophils 5.8 10^3/uL (1.4-6.5); Hematocrit 41.4 % (39.0-52.0); Hemoglobin 14.3 g/dL (13.0-18.0); Mean Corp Hgb Conc. 34.5 g/dL (33.0-37.0); Mean Corpuscular Hgb 30.9 pg (27.0-31.0); Mean Corpuscular Volume 89.4 fL (80.0-94.0); Mean Platelet Volume 11.2 fL (7.4-10.4); Nucleated Red Blood Cells % 0 % (-); Platelet Count 156 10^3/uL (130-400); Red Blood Cell Count 4.63 10^6/uL (4.70-6.10); White Blood Cell Count 8.8 10^3/uL (4.8-10.8)
[2024-11-08 01:06] LABS: ALT (SGPT) 43 U/L (0-50); AST (SGOT) 32 U/L (17-59); Albumin 4.3 g/dl (3.5-5.0); Alkaline Phosphatase 80 U/L (38-126); Blood Urea Nitrogen 21 mg/dl (9-20); Calcium 8.7 mg/dl (8.4-10.2); Carbon Dioxide 27 mmol/L (22-30); Chloride 97 mmol/L (98-107); Estimated Creatinine Clearance 103 ml/min; Glucose 217 mg/dl (70-99); Potassium 3.8 mmol/L (3.5-5.1); Sodium 135 mmol/L (135-145); Total Bilirubin 0.3 mg/dl (0.2-1.3); Total Protein 6.8 g/dl (6.3-8.2); eGFR > 60.00
[2024-11-08 01:18] LABS: Troponin I < 0.012 ng/ml
[2024-11-08 01:32] LABS: COVID-19 Antigen Negative (Negative)
[2024-11-08 02:23] VITALS: BP 125/64
== END 2024-11-08 02:35 | disposition home or self-care (01) ==
LOC: EMR 00:02
PROVIDERS: Clinical Nurse Specialist Family Health; EMERGENCY PHYSICIAN Student in an Organized Health Care Education/Training Program; FAMILY PHYSICIAN Nurse Practitioner Family
DX: R55 Syncope and collapse (principal); B34.9 Viral infection, unspecified; R05.9 Cough, unspecified; R07.9 Chest pain, unspecified; E86.0 Dehydration; Z11.52 Encounter for screening for COVID-19; J45.909 Unspecified asthma, uncomplicated; E11.65 Type 2 diabetes mellitus with hyperglycemia; I10 Essential (primary) hypertension; F31.9 Bipolar disorder, unspecified; I48.91 Unspecified atrial fibrillation; K21.9 Gastro-esophageal reflux disease without esophagitis; F43.10 Post-traumatic stress disorder, unspecified; F41.9 Anxiety disorder, unspecified
CPT/HCPCS: 99284; 96374; 71046; 80053; 84484; 85025; 87502; 87811; 93005